=== PATIENT | female | born 1935 | race Caucasian/White ===

== ENCOUNTER 2016-11-28 18:58 | Inpatient (IN) | payer OTHER, MEDICARE ==
[~2016-11-28] VITALS: Ht 154.9 cm; Wt 98.6 kg
[2016-11-28 19:16] VITALS: BP 91/54; PULSE 73; RESP 16; TEMP 98.5; O2SAT 90
--- NOTE | 2016-11-28 20:36 | RADRPT ---
EXAM DATE/TIME: 11/28/2016 20:31 [facility] COMPARISON: No previous studies available for comparison. INDICATIONS : Shortness of breath. MEDICAL HISTORY : None. SURGICAL HISTORY : None. ENCOUNTER: Initial ACUITY: 1 day PAIN SCORE: 0/10 LOCATION: Bilateral chest FINDINGS: A single view of the chest demonstrates diminished lung volumes. Heart borderline enlarged. Prominenc e of the lina bilaterally greater on the left. Osseous structures are intact. CONCLUSION: 1. Poor inspiration with questionable hilar prominence bilaterally. PA lateral views of the chest are recommended. Carlito June MD on November 28, 2016 at 20:34 Board Certified Radiologist. This report was verified electronically.
--- NOTE | 2016-11-28 21:07 | PD ---
HPI Chief Complaint: Neuro Symptoms/ Deficits Time Seen by Provider: 20:42 Travel History International Travel<30 days: No Contact w/Intl Traveler<30days: No Traveled to known affect area: No History of Present Illness HPI 81-year-old female with history of CVA on Plavix, followed by neurologist Dr. Diego, right carotid endarterectomy [address] Mcleod, here for evaluation because she believes she may have had a CVA today. She describes generalized weakness, ataxic gait, slurred speech. Symptoms started earlier this morning. She also reports feeling lightheaded. No fevers. No focal deficits. No chest pain or dyspnea. She complains of diffuse body pain secondary to arthritis which is usual for her. PFSH Past Medical History Hx Anticoagulant Therapy: Yes (plavix) Cerebrovascular Accident: Yes (hx stroke and tia) Diabetes: Yes ?: Not Social History Tobacco Use: No (Former smoker) Allergies-Medications (Allergen,Severity, Reaction): Coded Allergies: No Known Allergies (Unverified , 11/28/16) Reported Meds & Prescriptions Reported Meds & Active Scripts Active Reported Glimepiride 1 Mg Tab 1 Mg PO DAILY Take with breakfast or first main meal Prozac (Fluoxetine HCl) 10 Mg Cap 10 Mg PO DAILY Lovastatin 40 Mg Tab 40 Mg PO DAILY Tizanidine (Tizanidine HCl) 4 Mg Cap 4 Mg PO BID Plavix (Clopidogrel Bisulfate) 75 Mg Tab 75 Mg PO DAILY Tramadol (Tramadol HCl) 50 Mg Tab 50 Mg PO Q6H PRN Gabapentin 100 Mg Cap 100 Mg PO BID Temazepam 30 Mg Cap 30 Mg PO HS PRN Abilify (Aripiprazole) 2 Mg Tab 2 Mg PO DAILY Ferrous Sulfate 325 Mg (65 Mg Iron) Tablet 325 Mg PO BIDPC Omeprazole 20 Mg Tab 20 Mg PO DAILY Review of Systems Except as stated in HPI: all other systems reviewed are Neg Physical Exam Narrative GENERAL: Well-developed, well-nourished, overweight, awake, alert, GCS 15, no apparent distress. SKIN: Focused skin assessment warm/dry. No rash. No pallor. HEAD: Atraumatic. Normocephalic. EYES: Pupils equal and round. No scleral icterus. No injection or drainage. ENT: Mucous membranes pink and moist. NECK: Trachea midline. No JVD. CARDIOVASCULAR: Regular rate and rhythm. Distal pulses brisk and equal bilaterally. RESPIRATORY: No accessory muscle use. Clear to auscultation. Breath sounds equal bilaterally. GASTROINTESTINAL: Abdomen soft, non-tender, nondistended. MUSCULOSKELETAL: No obvious deformities. No clubbing. No cyanosis. No edema. NEUROLOGICAL: Awake and alert. No obvious cranial nerve deficits. Motor grossly within normal limits. Normal speech. Normal uxydxx-qryv-rkspec test bilaterally. No pronator drift. No focal deficits. PSYCHIATRIC: Appropriate mood and affect; insight and judgment normal. Data Data Last Documented VS Vital Signs Date Time Temp Pulse Resp B/P (MAP) Pulse Ox O2 Delivery O2 Flow Rate FiO2 11/28/16 22:38 Room Air 11/28/16 22:38 18 95 11/28/16 22:38 72 125/57 (79) 11/28/16 19:[address] Brain W/O Iv Contrast(Rout) (11/28/16 ) Urinalysis - C+S If Indicated (11/28/16 20:19) Chest, Single Ap (11/28/16 ) Complete Blood Count With Diff (11/28/16 20:34) Comprehensive Metabolic Panel (11/28/16 20:34) Prothrombin Time / Inr (Pt) (11/28/16 20:34) Act Partial Throm Time (Ptt) (11/28/16 20:34) Iv Access Insert/Monitor (11/28/16 20:34) Ecg Monitoring (11/28/16 20:34) Oximetry (11/28/16 20:34) Cath For Specimen (11/28/16 20:45) Urine Culture (11/28/16 22:05) Ceftriaxone Inj (Rocephin Inj) (11/28/16 23:00) Admit Order (Ed Use Only) (11/28/16 23:34) Labs Laboratory Tests Test 11/28/16 22:05 White Blood Count 10.6 TH/MM3 Red Blood Count 3.95 MIL/MM3 Hemoglobin 10.0 GM/DL Hematocrit 32.2 % Mean Corpuscular Volume 81.4 FL Mean Corpuscular Hemoglobin 25.3 PG Mean Corpuscular Hemoglobin Concent 31.0 % Red Cell Distribution Width 19.6 % Platelet Count 394 TH/MM3 Mean Platelet Volume 7.1 FL Neutrophils (%) (Auto) 65.2 % Lymphocytes (%) (Auto) 16.1 % Monocytes (%) (Auto) 6.3 % Eosinophils (%) (Auto) 10.0 % Basophils (%) (Auto) 2.4 % Neutrophils # (Auto) 6.8 TH/MM3 Lymphocytes # (Auto) 1.7 TH/MM3 Monocytes # (Auto) 0.7 TH/MM3 Eosinophils # (Auto) 1.1 TH/MM3 Basophils # (Auto) 0.3 TH/MM3 CBC Comment DIFF FINAL Differential Comment Prothrombin Time 10.7 SEC Prothromb Time International Ratio 1.0 RATIO Activated Partial Thromboplast Time 25.1 SEC Urine Color YELLOW Urine Turbidity MOD Urine pH 6.0 Urine Specific [place] 1.012 Urine Protein NEG mg/dL Urine Glucose (UA) NEG mg/dL Urine Ketones NEG mg/dL Urine Occult Blood NEG Urine Nitrite POS Urine Bilirubin NEG Urine Leukocyte Esterase LARGE Urine RBC 4-9 /hpf Urine WBC 25-49 /hpf Urine WBC Clumps OCC Urine Squamous Epithelial Cells 0-5 /hpf Urine Bacteria MANY /hpf Urine Hyaline Casts 3-5 /lpf Urine Mucus MOD /lpf Microscopic Urinalysis Comment CULTURE INDICATED Blood Urea Nitrogen 15 MG/DL Creatinine 1.20 MG/DL Random Glucose 67 MG/DL Total Protein 7.5 GM/DL Albumin 2.9 GM/DL Calcium Level 8.9 MG/DL Alkaline Phosphatase 72 U/L Aspartate Amino Transf (AST/SGOT) 97 U/L Alanine Aminotransferase (ALT/SGPT) 100 U/L Total Bilirubin 0.3 MG/DL Sodium Level 137 MEQ/L Potassium Level 3.6 MEQ/L Chloride Level 103 MEQ/L Carbon Dioxide Level 26.0 MEQ/L Anion Gap 8 MEQ/L Estimat Glomerular Filtration Rate 43 ML/MIN [facility] Medical Decision Making Medical Screen Exam Complete: Yes Emergency Medical Condition: Yes Differential Diagnosis CVA, TIA, metabolic abnormality, intracranial abnormality, UTI Narrative Course Vital signs show heart rate 72, blood pressure 125/57, pulse ox 95% on room air , oral temp of 98.5F. CBC shows WBC 10.6, hemoglobin 10, hematocrit 32.2, platelets 394. CMP is remarkable for creatinine 1.2, GFR 43, random glucose 67, AST 67, ALT 100. UA is suggestive of UTI. CT head: CONCLUSION: 1. No acute intracranial abnormality. 2. Old right occipital and left temporal lobe infarcts. 3. Mild, chronic white matter changes. Chest x-ray: CONCLUSION: 1. Poor inspiration with questionable hilar prominence bilaterally. PA lateral views of the chest are recommended. Jovon Durand MD Nov 28, 2016 21:07
--- NOTE | 2016-11-28 21:25 | RADRPT ---
EXAM DATE/TIME: 11/28/2016 21:02 [facility] COMPARISON: No previous studies available for comparison. INDICATIONS : Altered mental status; possible CVA. RADIATION DOSE: 59.16 CTDIvol (mGy) MEDICAL HISTORY : Cerebrovascular disease. Diabetes mellitus type 2. SURGICAL HISTORY : None. ENCOUNTER: Initial ACUITY: 1 day PAIN SCALE: Non-responsive LOCATION: cranial TECHNIQUE: Multiple contiguous axial images were obtained of the head. Using automated exposure control and adj ustment of the mA and/or kV according to patient size, radiation dose was kept as low as reasonably a chievable to obtain optimal diagnostic quality images. DICOM format image data is available electro nically for review and comparison. FINDINGS: CEREBRUM: The ventricles are normal for age. No evidence of midline shift, mass lesion, hemorrhage or acute in farction. No extra-axial fluid collections are seen. Mild, chronic appearing low attenuation seen in the periventricular white matter. There are also old infarcts of the right occipital and left tempor al lobes.. POSTERIOR FOSSA: The cerebellum and brainstem are intact. The 4th ventricle is midline. The cerebellopontine angle i s unremarkable. EXTRACRANIAL: The visualized portion of the orbits is intact. SKULL: The calvaria is intact. No evidence of skull fracture. CONCLUSION: 1. No acute intracranial abnormality. 2. Old right occipital and left temporal lobe infarcts. 3. Mild, chronic white matter changes. Thierry Lyles MD on November 28, 2016 at 21:22 Board Certified Radiologist. This report was verified electronically.
[2016-11-28 22:18] LABS: AUTOMATED NEUTROPHIL # 6.8 TH/MM3 (1.8-7.7); BASOPHIL # 0.3 TH/MM3 (0-0.2); BASOPHIL % 2.4 % (0.0-2.0); EOSINOPHIL # 1.1 TH/MM3 (0-0.4); HEMATOCRIT 32.2 % (35.0-46.0); LYMPH % 16.1 % (9.0-44.0); LYMPHOCYTE # 1.7 TH/MM3 (1.0-4.8); MEAN CELL VOLUME 81.4 FL (80.0-100.0); MEAN CORPUSCULAR HEMOGLOBIN 25.3 PG (27.0-34.0); MONO % 6.3 % (0.0-8.0); NEUT % 65.2 % (16.0-70.0); PLATELET COUNT 394 TH/MM3 (150-450); RED BLOOD COUNT 3.95 MIL/MM3 (4.00-5.30); RED CELL DISTRIBUTION WIDTH 19.6 % (11.6-17.2); WHITE BLOOD COUNT 10.6 TH/MM3 (4.0-11.0)
[2016-11-28 22:20] LABS: BLOOD, URINE NEG (NEG); GLUCOSE,URINE NEG (NEG); KETONE, URINE NEG (NEG); NITRITE,URINE POS (NEG)
[2016-11-28 22:30] LABS: CHLORIDE 103 MEQ/L (98-107); POTASSIUM 3.6 MEQ/L (3.5-5.1); SODIUM (NA) 137 MEQ/L (136-145)
[2016-11-28 22:31] LABS: HEMO FLAGS DIFF FINAL
[2016-11-28 22:35] LABS: ANION GAP 8 MEQ/L (5-15); BLOOD UREA NITROGEN 15 MG/DL (7-18)
[2016-11-28 22:38] VITALS: BP 125/57; PULSE 72; RESP 18; O2SAT 95
[2016-11-28 22:38] LABS: ALT (GPT) 100 U/L (10-53); AST (GOT) 97 U/L (15-37); GLOMERULAR FILTRATION RATE 43 ML/MIN (>89)
[2016-11-28 22:40] LABS: TOTAL BILIRUBIN ADULT 0.3 MG/DL (0.2-1.0)
[2016-11-28 22:41] LABS: ALKALINE PHOSPHATASE 72 U/L (45-117)
[2016-11-28 22:48] LABS: APTT (PATIENT) 25.1 SEC (24.3-30.1); PROTHROMBIN TIME - PATIENT 10.7 SEC (9.8-11.6)
[2016-11-28 22:50] LABS: MUCUS URINE MOD /lpf (OCC); URINE COLOR YELLOW (YELLW/STRAW)
[2016-11-28 22:51] LABS: BACTERIA, URINE MANY /hpf; COMMENT (UR) CULTURE INDICATED; CULTURE IF INDICATED CULTURE INDICATED; SQUAMOUS EPITHELIAL CELL URINE 0-5 /hpf (0-5)
[2016-11-28] MEDS ORDERED: TIZA4CAP3 PO (22:56)
[2016-11-28] MEDS ORDERED: OMEP20TA PO (22:56)
[2016-11-28] MEDS ORDERED: GLIM1TAB PO (22:56)
[2016-11-28] MEDS ORDERED: TEMA30CA PO (22:56)
[2016-11-28] MEDS ORDERED: LOVA40TA PO (22:56)
[2016-11-28] MEDS ORDERED: PLAV75TA29 PO (22:56)
[2016-11-28] MEDS ORDERED: FLUO-1 PO (22:56)
[2016-11-28] MEDS ORDERED: TRAM50TA PO (22:56)
[2016-11-28] MEDS ORDERED: GABA100C4 PO (22:56)
[2016-11-28] MEDS ORDERED: ABIL2TAB2 PO (22:56)
[2016-11-28] MEDS ORDERED: FERR325T8 PO (22:56)
[2016-11-28] MEDS ORDERED: cefTRIAXone INJ 1,000 MG in SODIUM CHLORIDE 0.9% INJ 100 ML IV ONE (23:00)
[2016-11-28] MEDS ORDERED: DEXTROSE 50% IN WATER 50 ML VIAL(D50) IV PUSH PRN (23:45)
[2016-11-28] MEDS ORDERED: DEXTROSE 50% IN WATER 50 ML VIAL(D50) IV PRN (23:45)
[2016-11-28] MEDS ORDERED: GLUCAGON 1 MG/ML VIAL OTHER PRN ×2 (23:45)
[2016-11-28] MEDS ORDERED: SODIUM CHLORIDE 0.9% FLUSH 5 ML FLUSH IV FLUSH PRN (23:45)
[2016-11-29] VITALS (12 sets, daily range): BP systolic 119–163; BP diastolic 43–81; PULSE 75–95; RESP 16–20; TEMP 98.3–99; O2SAT 92–99
--- NOTE | 2016-11-29 00:25 | RADRPT ---
EXAM DATE/TIME: 11/28/2016 23:41 [facility] COMPARISON: CHEST SINGLE AP, November 28, 2016, 20:31. INDICATIONS : Shortness of breath. MEDICAL HISTORY : None. SURGICAL HISTORY : None. ENCOUNTER: Subsequent ACUITY: 1 day PAIN SCORE: 0/10 LOCATION: Bilateral chest FINDINGS: PA and lateral views of the chest demonstrate subsegmental opacity in the lungs there is predominantl y linear and most characteristic of atelectasis. Elevated right hemidiaphragm. No effusion. Heart siz e upper limits normal. CONCLUSION: 1. Subsegmental airspace disease in the lungs in the bases and perihilar regions most characteristic of atelectasis. Elevated right hemidiaphragm. No significant effusion. Jorge Alberto Zavaleta MD on November 29, 2016 at 0:21 Board Certified Radiologist. This report was verified electronically.
[2016-11-29] MEDS ORDERED: ACETAMINOPHEN 325 MG TAB PO ONE (01:30)
--- NOTE | 2016-11-29 08:54 | RADRPT ---
EXAM DATE/TIME: 11/29/2016 08:04 [facility] COMPARISON: No previous studies available for comparison. INDICATIONS : Transient ischemic attack. MEDICAL HISTORY : Cerebrovascular accident. Anticoagulant therapy, Plavix. Diabetes. SURGICAL HISTORY : Right carotid endarterectomy. Left femur surgery. Bilateral ankle surgery. Right knee surgery. ENCOUNTER: Initial ACUITY: 2 days PAIN SCORE: 0/10 LOCATION: Bilateral neck PEAK SYSTOLIC VELOCITIES (cm/sec): ICA/CCA RATIO: Right: 0.9 Left: 1.2 ICA: Right: 87 Left: 96 CCA: Right: 93 Left: 82 ECA: Right: 331 Left: 142 VERTEBRAL: Right: 61 antegrade Left: 43 antegrade Elevated flow velocities and ICA/CCA ratios have been found to correlate with increased degrees of vessel stenosis, calculated as percentage of diameter relative to a normal segment of distal ICA/CCA FINDINGS: RIGHT CAROTID: There is no evidence for a hemodynamically significant carotid stenosis. Minimal int imal hyperplasia is present with scattered calcific plaque. LEFT CAROTID: There is no evidence for a hemodynamically significant carotid stenosis. Minimal inti mal hyperplasia is present with scattered calcific plaque. VERTEBRAL ARTERIES: Flow is antegrade in both vertebral arteries. MISCELLANEOUS: There are no ancillary masses or adenopathy. CONCLUSION: Negative examination for a hemodynamically significant carotid stenosis. Kyree Felton MD FACR on November 29, 2016 at 8:44 Board Certified Radiologist. This report was verified electronically.
[2016-11-29] MEDS: SODIUM CHLORIDE 0.9% FLUSH 5 ML FLUSH IV FLUSH SCH ×2 (09:00→20:25)
[2016-11-29 09:29] LABS: HDL CHOLESTEROL 35.2 MG/DL (40.0-60.0); LDL CHOLESTEROL 53 MG/DL (0-99)
[2016-11-29 09:58] LABS: POTASSIUM 3.6 MEQ/L (3.5-5.1)
[2016-11-29 10:02] LABS: BICARBONATE 26.2 MEQ/L (21.0-32.0)
[2016-11-29] MEDS: cefTRIAXone INJ 1,000 MG in SODIUM CHLORIDE 0.9% INJ 100 ML IV SCH ×2 (10:40→20:21)
[2016-11-29 10:51] LABS: HEMOGLOBIN A1a 1.5 %; HEMOGLOBIN A1b 1.8 %; HEMOGLOBIN Ao 84.9 %; HEMOGLOBIN LA1C 1.9 %; HEMOGLOBIN P3 5.1 %
--- NOTE | 2016-11-29 11:52 | HHI.HP ---
HPI Service [facility] Primary Care Physician Thierry Irwin MD Admission Diagnosis UTI, unsteady gait r/o CVA Diagnoses: (1) Urinary tract infection Diagnosis: Principal (2) History of CVA (cerebrovascular accident) Diagnosis: Secondary (3) Slurred speech Diagnosis: Principal (4) Weakness Diagnosis: Principal Chief Complaint: Slurred speech, weakness, fatigue Travel History International Travel<30 Days: No Contact w/Intl Traveler <30 Da: No Traveled to Known Affected Are: No History of Present Illness Written by Cedric Tamayo, acting as scribe for Dr. Gonzalez on 11/29/16 at 11: 42. 81-year-old female with known history of CVA, recent urinary tract infection, chronic back pain, chronic obstructive pulmonary disease, arthritis, diabetes who presented to hospital for multiple symptoms. Patient indicates that she was just recently admitted to the hospital in [facility] and treated for urinary tract infection. Patient discharged home on amoxicillin she did not feel that the infection was going away. She was told that she needed to change her antibiotics to another medication, however it would interfere with her diabetic medication. Patient's symptoms Ressie got worse, she started developing weakness, fatigue, slurred speech. Patient thought that she was having a stroke again so she came to the hospital for evaluation. Patient's symptoms have thus resolved since being in the emergency department. CT scan did not indicate any acute abnormality. Workup did indicate urinary tract infection without any signs of sepsis. It was recommended that the patient be admitted for neurological evaluation. Patient denies any symptoms at this time. Review of Systems Constitutional: COMPLAINS OF: Fatigue Neurologic: COMPLAINS OF: Abnormal gait, Speech Problems Except as stated in HPI: all other systems reviewed are Neg Past Family Social History Past Medical History Diabetes Chronic back pain Chronic obstructive pulmonary disease History of stroke History of recent urinary tract infection Past Surgical History Right knee surgery Right ankle surgery Left ankle surgery Cholecystectomy Reported Medications Reported Meds & Active Scripts Active Reported Glimepiride 1 Mg Tab 1 Mg PO DAILY Take with breakfast or first main meal Prozac (Fluoxetine HCl) 10 Mg Cap 10 Mg PO DAILY Lovastatin 40 Mg Tab 40 Mg PO DAILY Tizanidine (Tizanidine HCl) 4 Mg Cap 4 Mg PO BID Plavix (Clopidogrel Bisulfate) 75 Mg Tab 75 Mg PO DAILY Tramadol (Tramadol HCl) 50 Mg Tab 50 Mg PO Q6H PRN Gabapentin 100 Mg Cap 100 Mg PO BID Temazepam 30 Mg Cap 30 Mg PO HS PRN Abilify (Aripiprazole) 2 Mg Tab 2 Mg PO DAILY Ferrous Sulfate 325 Mg (65 Mg Iron) Tablet 325 Mg PO BIDPC Omeprazole 20 Mg Tab 20 Mg PO DAILY Allergies: Coded Allergies: No Known Allergies (Unverified , 11/28/16) Family History Reviewed is significant for mother with heart disease and father with colon cancer. Social History Patient states that she quit smoking in the 80s, denies any current use, denies any alcohol or illicit drugs Physical Exam Vital Signs Vital Signs Date Time Temp Pulse Resp B/P (MAP) Pulse Ox O2 Delivery O2 Flow Rate FiO2 11/29/16 11:21 11/29/16 11:08 86 16 97 Nasal Cannula 11/29/16 11:03 87 16 133/57 (82) 88 16 143/65 (91) 100 16 119/51 (73) 11/29/16 07:15 87 16 96 Nasal Cannula 2.00 11/29/16 07:15 87 16 131/52 (78) 96 Nasal Cannula 2.00 11/29/16 07:00 16 11/29/16 06:00 98.6 86 18 149/58 (88) 96 Nasal Cannula 2.00 11/29/16 04:00 86 18 134/43 (73) 94 Nasal Cannula 2.00 11/29/16 03:00 90 18 160/57 (91) 94 Room Air 11/29/16 02:00 99.0 86 18 163/59 (93) 94 Room Air 11/29/16 01:00 82 18 161/81 (107) 95 Room Air 11/29/16 00:00 94 Room Air 11/29/16 00:00 98.8 75 18 161/69 (99) 94 Room Air 11/28/16 22:38 Room Air 11/28/16 22:38 18 95 Room Air 11/28/16 22:38 72 18 125/57 (79) 95 Room Air 11/28/16 19:16 98.5 73 16 91/54 (66) 90 Physical Exam GENERAL: Well-developed, well-nourished, in no acute distress. alert and orientated HEENT: Head is normocephalic without any lesions or masses noted. Facial features are symmetric. Eyes: Pupils equal round reactive to light. Extraocular muscles are intact. Conjunctivae were clear. Oropharyngeal: Pharynx without any erythema edema. Tongue is midline without deviation. Buccal mucosa is moist without any masses or lesions NECK: Supple without any masses. Trachea midline no deviation. No JVD, no bruits are appreciated CARDIAC: Regular rhythm, regular rate. S1/S2 are heard. No murmurs gallops or rubs. LUNGS: Clear to auscultation bilaterally. No wheeze, rhonchi or rales. No use of accessory muscles on inspiration or expiration. ABDOMEN: Soft, nontender. Nondistended. Bowel sounds heard in all 4 quadrants. No organomegaly or masses. Negative rebound, negative guarding EXTREMITIES: No edema, pulses are equal bilaterally. No cyanosis or clubbing NEUROLOGY: Mood and affect appear appropriate. Cranial nerves II through XII grossly intact. Muscle strength 5/5 in upper and lower extremities bilaterally. Deep tendon reflexes are 2+ in upper and lower extremities bilaterally. Laboratory Laboratory Tests Test 11/28/16 22:05 11/29/16 05:50 11/29/16 09:15 White Blood Count 10.6 Red Blood Count 3.95 Hemoglobin 10.0 Hematocrit 32.2 Mean Corpuscular Volume 81.4 Mean Corpuscular Hemoglobin 25.3 Mean Corpuscular Hemoglobin Concent 31.0 Red Cell Distribution Width 19.6 Platelet Count 394 Mean Platelet Volume 7.1 Neutrophils (%) (Auto) 65.2 Lymphocytes (%) (Auto) 16.1 Monocytes (%) (Auto) 6.3 Eosinophils (%) (Auto) 10.0 Basophils (%) (Auto) 2.4 Neutrophils # (Auto) 6.8 Lymphocytes # (Auto) 1.7 Monocytes # (Auto) 0.7 Eosinophils # (Auto) 1.1 Basophils # (Auto) 0.3 CBC Comment DIFF FINAL Differential Comment Prothrombin Time 10.7 Prothromb Time International Ratio 1.0 Activated Partial Thromboplast Time 25.1 Urine Color YELLOW Urine Turbidity MOD Urine pH 6.0 Urine Specific [place] 1.012 Urine Protein NEG Urine Glucose (UA) NEG Urine Ketones NEG Urine Occult Blood NEG Urine Nitrite POS Urine Bilirubin NEG Urine Leukocyte Esterase LARGE Urine RBC 4-9 Urine WBC 25-49 Urine WBC Clumps OCC Urine Squamous Epithelial Cells 0-5 Urine Bacteria MANY Urine Hyaline Casts 3-5 Urine Mucus MOD Microscopic Urinalysis Comment CULTURE INDICATED Blood Urea Nitrogen 15 11 Creatinine 1.20 0.93 Random Glucose 67 89 Total Protein 7.5 Albumin 2.9 Calcium Level 8.9 8.6 Alkaline Phosphatase 72 Aspartate Amino Transf (AST/SGOT) 97 Alanine Aminotransferase (ALT/SGPT) 100 Total Bilirubin 0.3 Sodium Level 137 141 Potassium Level 3.6 3.6 Chloride Level 103 105 Carbon Dioxide Level 26.0 26.2 Anion Gap 8 10 Estimat Glomerular Filtration Rate 43 58 Hemoglobin A1c 5.7 Triglycerides Level 122 Cholesterol Level 113 LDL Cholesterol 53 HDL Cholesterol 35.2 Cholesterol/HDL Ratio 3.21 Date/Time Source Procedure Growth Status 11/28/16 22:05 Urine Clean Catch Urine Culture Pending Received Result Diagram: 11/28/16 2205 11/29/16 0915 Imaging Last Impressions Carotid Artery Ultrasound 11/29/16 0000 Signed Impressions: Service Date/Time: Tuesday, November 29, 2016 08:04 - CONCLUSION: Negative examination for a hemodynamically significant carotid stenosis. Kyree Felton MD FACR Head CT 11/28/16 0000 Signed Impressions: Service Date/Time: Monday, November 28, 2016 21:02 - CONCLUSION: 1. No acute intracranial abnormality. 2. Old right occipital and left temporal lobe infarcts. 3. Mild, chronic white matter changes. Thierry Lyles MD Chest X-Ray 11/28/16 0000 Signed Impressions: Service Date/Time: Monday, November 28, 2016 23:41 - CONCLUSION: 1. Subsegmental airspace disease in the lungs in the bases and perihilar regions most characteristic of atelectasis. Elevated right hemidiaphragm. No significant effusion. Jorge Alberto Zavaleta MD Caprini VTE Risk Assessment Caprini VTE Risk Assessment: Mod/High Risk (score >= 2) Caprini Risk Assessment Model Point Value = 1 Point Value = 2 Point Value = 3 Point Value = 5 Age 41-60 Minor surgery BMI > 25 kg/m2 Swollen legs Varicose veins or History of unexplained or recurrent spontaneous Oral contraceptives or hormone replacement Sepsis (< 1 month) Serious lung disease, including pneumonia (< 1 month) Abnormal pulmonary function Acute myocardial infarction Congestive heart failure (< 1 month) History of inflammatory bowel disease Medical patient at bed rest Age 61-74 Arthroscopic surgery Major open surgery (> 45 min) Laparoscopic surgery (> 45 min) Malignancy Confined to bed (> 72 hours) Immobilizing plaster cast Central venous access Age >= 75 History of VTE Family history of VTE Factor V Leiden Prothrombin [id number] Lupus anticoagulant Anticardiolipin antibodies Elevated serum homocysteine Heparin-induced thrombocytopenia Other congenital or acquired thrombophilia Stroke (< 1 month) Elective arthroplasty Hip, pelvis, or leg fracture Acute spinal cord injury (< 1 month) Prophylaxis Regimen Total Risk Factor Score Risk Level Prophylaxis Regimen 0-1 Low Early ambulation 2 Moderate Order ONE of the following: *Sequential Compression Device (SCD) *Heparin 5000 units SQ BID 3-4 Higher Order ONE of the following medications: *Heparin 5000 units SQ TID *Enoxaparin/Lovenox 40 mg SQ daily (WT < 150 kg, CrCl > 30 mL/min) *Enoxaparin/Lovenox 30 mg SQ daily (WT < 150 kg, CrCl > 10-29 mL/min) *Enoxaparin/Lovenox 30 mg SQ BID (WT < 150 kg, CrCl > 30 mL/min) AND/OR *Sequential Compression Device (SCD) 5 or more Highest Order ONE of the following medications: *Heparin 5000 units SQ TID (Preferred with Epidurals) *Enoxaparin/Lovenox 40 mg SQ daily (WT < 150 kg, CrCl > 30 mL/min) *Enoxaparin/Lovenox 30 mg SQ daily (WT < 150 kg, CrCl > 10-29 mL/min) *Enoxaparin/Lovenox 30 mg SQ BID (WT < 150 kg, CrCl > 30 mL/min) AND *Sequential Compression Device (SCD) Assessment and Plan Assessment and Plan Fatigue, weakness, slurred speech, multiple neurological symptoms Could be secondary to underlying neurological event, urinary tract infection CT scan was performed which was unremarkable Neurology consulted, recommending full neurological workup in addition of aspirin Awaiting MRI, MRA, carotid ultrasound, echocardiogram, further laboratory studies Continue Plavix, add aspirin Urinary tract infection Patient started on Rocephin Continue monitor culture and adjust antibiotics accordingly Diabetes Accu-Cheks with sliding scale insulin Check hemoglobin A1c Chronic back pain Home medications continued DVT prevention Sequential compression devices This note was transcribed by scribe [Cedric Tamayo]. I, Dr. Gayle Gonzalez personally performed the history, physical exam, and medical decision making; and confirmed the accuracy of the information in the transcribed note. Authenticated by Dr. Gayle Gonzalez on 11/29/16 at 1150. Discussed Condition With Patient, neurologist Cedric Tamayo Nov 29, 2016 11:52 Gayle Gonzalez MD Nov 29, 2016 12:09
--- NOTE | 2016-11-29 12:07 | RADRPT ---
EXAM DATE/TIME: 11/29/2016 11:43 [facility] COMPARISON: No previous studies available for comparison. INDICATIONS : CVA. Slurred speech and ataxia. MEDICAL HISTORY : Cerebrovascular disease. Chronic obstructive pulmonary disease. Diabetes mellitus type 2. SURGICAL HISTORY : Total knee replacement, right. Carotid endarterectomy. Right ankle repair. Left femur teddy. ENCOUNTER: Subsequent ACUITY: 2 day PAIN SCORE: 0/10 LOCATION: head. TECHNIQUE: Multiplanar, multisequence MRI of the brain was performed without contrast. FINDINGS: The examination demonstrates abnormal T2 signal and encephalomalacia in the left temporal cortex. Thi s is seen in the occipital cortex on the right as well. I believe these areas represent old/subacute areas of cortical infarct. There is cortical atrophy. There is moderate microvascular ischemic demyelinative change. No mass les ion is identified. No significant extra-axial fluid collections are present. The ventricles are normal in size and configuration. The appearance of the posterior fossa is unremarkable. The visualized portion of sinus and orbit is intact. CONCLUSION: 1. Abnormal T2 signal and encephalomalacia involving the left temporal lobe and medial aspect of the right occipital cortex. These have appearance most consistent with old or subacute areas of infarct. No significant abnormal signal is seen on the diffusion restricted images. 2. Cortical atrophy and microvascular ischemic demyelinative change. Ketan Felton MD on November 29, 2016 at 12:02 Board Certified Radiologist. This report was verified electronically.
--- NOTE | 2016-11-29 12:10 | RADRPT ---
EXAM DATE/TIME: 11/29/2016 11:43 [facility] COMPARISON: MRI BRAIN W/O CONTRAST, November 29, 2016, 11:43. INDICATIONS : CVA. Slurred speech and ataxia. MEDICAL HISTORY : Cerebrovascular disease. Chronic obstructive pulmonary disease. Diabetes mellitus type 2. SURGICAL HISTORY : Total knee replacement, right. Carotid endarterectomy. Right ankle repair. Left femur teddy. ENCOUNTER: Subsequent ACUITY: 2 day PAIN SCORE: 0/10 LOCATION: head . Please note a normal MRA of the brain does not entirely exclude the possibility of a small aneurysm, nor the possibility of distal intracranial vessel disease. TECHNIQUE: 3D time of flight MRA was performed. Source images, multiplanar STS MIP, and 3D volume MIP reconstru ctions were reviewed. FINDINGS: There is some pruning of the distal M3 branches of the left MCA. This is in the region of an area of old infarct seen on the accompanying MRI data. The remainder of the intracranial circulation is withi n normal limits. The right vertebral is diminutive in size. CONCLUSION: There is some pruning of the cortical branches of the distal left MCA distribution. This is in the re gion of an old area of infarct. No central vessel occlusion identified. Ketan Felton MD on November 29, 2016 at 12:06 Board Certified Radiologist. This report was verified electronically.
[2016-11-29] MEDS: traMADol HCL 50 MG TAB PO PRN ×2 (12:35→20:21)
[2016-11-29] MEDS: ASPIRIN EC 81 MG TABEC PO SCH (12:46)
--- NOTE | 2016-11-29 17:10 | ECHRPT ---
Indication: CVA/TIA CONCLUSIONS Normal left ventricular size. Wall thickness is normal. The left ventricular systolic function is normal with an estimated ejection fraction in the range of 60-65%. No wall motion abnormalities. Trace mitral valve regurgitation. Trace aortic valve regurgitation. There is trace tricuspid valve regurgitation. Normal estimated pulmonary pressures. BP: 131 / 57 HR: 87 Rhythm: Sinus MEASUREMENTS (Male / Female) Normal Values Technical Quality:Fair 2D ECHO LV Diastolic Diameter PLAX 5.0 cm 4.2 - 5.9 / 3.9 - 5.3 cm LV Systolic Diameter PLAX 3.9 cm IVS Diastolic Thickness 1.3 cm 0.6 - 1.0 / 0.6 - 0.9 cm LVPW Diastolic Thickness 1.3 cm 0.6 - 1.0 / 0.6 - 0.9 cm LV Relative Wall Thickness 0.5 LVOT Diameter 1.8 cm Aortic Root Diameter 2.5 cm LA Systolic Diameter LX 3.5 cm 3.0 - 4.0 / 2.7 - 3.8 cm M-MODE AV Cusp Separation MM 1.6 cm DOPPLER AV Peak Velocity 186.0 cm/s AV Peak Gradient 13.8 mmHg AV Mean Gradient 7.0 mmHg AV Velocity Time Integral 31.9 cm LVOT Peak Velocity 95.5 cm/s LVOT Peak Gradient 3.6 mmHg LVOT Velocity Time Integral 18.1 cm LVOT Cardiac Index 1872.6 cm/minm AV Area Cont Eq vti 1.4 cm AV Area Cont Eq pk 1.3 cm Mitral E Point Velocity 66.6 cm/s Mitral A Point Velocity 99.2 cm/s Mitral E to A Ratio 0.7 LV E' Lateral Velocity 13.0 cm/s Mitral E to LV E' Lateral Ratio 5.1 LV E' Septal Velocity 4.6 cm/s Mitral E to LV E' Septal Ratio 14.5 TR Peak Velocity 267.0 cm/s TR Peak Gradient 28.5 mmHg PV Peak Velocity 97.8 cm/s PV Peak Gradient 3.8 mmHg FINDINGS LEFT VENTRICLE Normal left ventricular size. Wall thickness is normal. The left ventricular systolic function is normal with an estimated ejection fraction in the range of 60-65%. No wall motion abnormalities. RIGHT VENTRICLE Normal right ventricular size and systolic function. LEFT ATRIUM The left atrial size is normal. RIGHT ATRIUM The right atrial size is normal. ATRIAL SEPTUM The interatrial septum not well visualized. AORTA The aortic root and proximal ascending aorta are normal in size on limited imaging. MITRAL VALVE Trace mitral valve regurgitation. AORTIC VALVE Trace aortic valve regurgitation. TRICUSPID VALVE Structurally normal tricuspid valve. There is trace tricuspid valve regurgitation. Normal estimated pulmonary pressures. PULMONARY VALVE The pulmonary valve is not well visualized. VESSELS The inferior vena cava was not well visualized. PERICARDIUM A prominent epicardial fat pad is present. Tato Mota MD (Electronically Signed) Final Date:29 November 2016 17:09
[2016-11-29] MEDS: FERROUS SULFATE 325 MG (65 MG ELEMENTAL IRON) TAB PO SCH (17:37)
[2016-11-29] MEDS: TEMAZEPAM 15 MG CAP PO PRN (22:32)
[2016-11-30] VITALS (10 sets, daily range): BP systolic 121–159; BP diastolic 54–87; PULSE 67–99; RESP 14–22; TEMP 97.5–99.7; O2SAT 90–97
[2016-11-30] MEDS: traMADol HCL 50 MG TAB PO PRN (03:16)
--- NOTE | 2016-11-30 07:43 | RADRPT ---
EXAM DATE/TIME: 11/30/2016 06:53 [facility] COMPARISON: No previous studies available for comparison. INDICATIONS : Fall, right wrist pain. MEDICAL HISTORY : None. SURGICAL HISTORY : None. ENCOUNTER: Initial ACUITY: 1 day PAIN SCORE: 10/10 LOCATION: Right wrist FINDINGS: A severe comminuted fracture dislocation of the right wrist is noted. There is dorsal displacement of the distal radius and radiocarpal joint in relation to the radial and ulnar shafts. The comminuted f racture involves the articulate surface of the radius. Fracture distal ulnar is noted. Carpal alignment is difficult to assess due to severe deformity. CONCLUSION: Severe comminuted fracture dislocation of the right distal radius and ulna extending into the radioca rpal joint. Carpal alignment difficult to assess due to severe deformity. Nehemiah Aquino MD on November 30, 2016 at 7:34 Board Certified Radiologist. This report was verified electronically.
[2016-11-30] MEDS: cefTRIAXone INJ 1,000 MG in SODIUM CHLORIDE 0.9% INJ 100 ML IV SCH (08:25)
[2016-11-30] MEDS: ARIPiprazole 2 MG TAB PO SCH (08:27)
[2016-11-30] MEDS: CLOPIDOGREL 75 MG TAB PO SCH (08:28)
[2016-11-30] MEDS: FERROUS SULFATE 325 MG (65 MG ELEMENTAL IRON) TAB PO SCH ×2 (08:28→17:17)
[2016-11-30] MEDS: ASPIRIN EC 81 MG TABEC PO SCH (08:28)
[2016-11-30] MEDS: FLUoxetine HCL 10 MG CAP PO SCH (08:31)
[2016-11-30] MEDS: SODIUM CHLORIDE 0.9% FLUSH 5 ML FLUSH IV FLUSH SCH ×2 (08:32→19:55)
[2016-11-30] MEDS: MORPHINE SULFATE 4 MG/ML INJ IV PRN ×3 (08:32→23:56)
[2016-11-30] MEDS ORDERED: PRAVASTATIN SOD 40 MG TAB PO SCH (09:00)
[2016-11-30] MEDS ORDERED: PANTOPRAZOLE SOD 20 MG DELAYED RELEASE TAB PO SCH (09:00)
[2016-11-30] MEDS ORDERED: MORPHINE SULFATE 8 MG/ML INJ IV PUSH ONE (09:45)
[2016-11-30] MEDS ORDERED: INFLUENZA VIRUS VACCINE (QUADRIVALENT) 0.5 ML SYR IM ONE (10:00)
--- NOTE | 2016-11-30 10:49 | RADRPT ---
EXAM DATE/TIME: 11/30/2016 10:03 [facility] COMPARISON: WRIST RIGHT LIMITED(AP & LAT), November 30, 2016, 6:53. INDICATIONS : Right wrist fracture. RADIATION DOSE: 14.50 CTDIvol (mGy) MEDICAL HISTORY : Cerebrovascular disease. Chronic obstructive pulmonary disease. Diabetes mellitus type 2. SURGICAL HISTORY : Left femur, left and right ankle ORIF. Right total knee. ENCOUNTER: Initial ACUITY: 1 day PAIN SCALE: 10/10 LOCATION: Right wrist TECHNIQUE: Volumetric scanning of the wrist was performed. Using automated exposure control and adjustment of t he mA and/or kV according to patient size, radiation dose was kept as low as reasonably achievable to obtain optimal diagnostic quality images. DICOM format image data is available electronically for review and comparison. FINDINGS: BONES: There is a markedly comminuted fracture involving both the distal radius and the ulna. The multiple r adial fragments are dorsal to the radial metaphysis. There is a small triangular fragment associated with the distal radial metaphysis measuring 1.3 cm across. The distal fragments of the radius are aga in dorsally displaced and markedly comminuted with a large articular surface fragment rotated into th e comminuted fractures fragments. The radial scaphoid articulation is still fairly preserved however the radial lunate articulation is comminuted and impacted. There is also some ulnar angulation to th e radial metaphysis and multiple epiphyseal fragments. The distal ulna is comminuted fractured with also slight dorsal displacement of the fracture fra gments. JOINTS: No focal bone erosion. Intrinsic ligaments and triangular fibrocartilage cannot be reliably evaluate d on CT without intra-articular contrast SOFT TISSUES: Muscles, tendons, and neurovascular structures are grossly unremarkable. No evidence of mass, organi zed fluid collection or foreign body. CONCLUSION: Common fractures of the distal radius and ulna as described above. The radial articulating surface is markedly comminuted with a portion of the radius scaphoid articulation remaining . There is signifi cant angulation of the radial fracture and displacement of fragments posteriorly with ulnar angulatio n. Vikas Aguilar MD on November 30, 2016 at 10:42 Board Certified Radiologist. This report was verified electronically.
[2016-11-30] MEDS ORDERED: VANCOMYCIN INJ 1,000 MG in SODIUM CHLOR 0.9% 250 ML INJ 250 ML IV ONE (11:15)
[2016-11-30] MEDS ORDERED: KETOROLAC TROMETHAMINE 30 MG/ML (IVP) VIAL IV PUSH ONE (11:15)
[2016-11-30] MEDS ORDERED: Vancomycin Consult Pharmacy 1 EA OTHER SCH (11:15)
--- NOTE | 2016-11-30 11:22 | MB ---
cc: DOM LEBLANC M.D. DATE OF CONSULTATION: 11/29/2016 HISTORY OF PRESENT ILLNESS She is a 89-kpykk-ver woman with stroke in the right occipital and left temporoparietal head region. She had a right carotid endarterectomy three months ago. She has been on Plavix and occasionally she takes a baby aspirin. Yesterday, she came to the emergency room of this hospital, [place], and she was describing recent urinary traction infection which was somewhat difficult to be treated, chronic back pain. She has multiple medical problems including diabetes, COPD with and she ambulates with a cane and a motorized wheelchair. She developed some vague symptoms yesterday and thought she needed to come to the hospital because of possible stroke. She had some fatigue, weakness and slurred speech but she has Vital signs: He is weakness, slurred speech but she is really unable to describe any symptoms to me. She thought she was having more on the urinary tract infection which caused her to be quite sleepy, encephalopathic and weak. MEDICATIONS Her list of medications includes: 1. Prozac. 2. Tizanidine. 3. Plavix. 4. Gabapentin. 5. Tramadol. 6. Temazepam. 7. Abilify. 8. Omeprazole. 9. Glimepiride. 10. Occasional aspirin as discussed above. NEUROLOGICAL EXAMINATION Exam shows the patient to be alert, pleasant, oriented, provides some basic history, well aware of recent medical problems including recent carotid endarterectomy. She has generalized weakness and moving all four extremities on the bedside exam without any major lateralizing features. Visual gordon are grossly intact. Reflexes were difficult to elicit at the knees and ankles due to prior procedures, bilateral frontal extensor responses. LABORATORY DATA WBC 10.6, hemoglobin 10.0, platelet count 319. Basic chemistry essentially normal. LDL is 53. Urinalysis with 25-49 RBCs. ASSESSMENT History of multiple strokes and a recent urinary tract infection which appears to persist and I suspect a lot of her current symptoms are probably from persistent UTI rather than a new cerebrovascular event. She does have an MRI of brain compatible with history of left parietotemporal old stroke and also right medial occipital old event. Would continue with statin, plavix and baby aspirin daily. Stroke rehab for out of bed activity. Continue the medical management for UTI etc. Thank you for asking us to assist in her care. MD YASMIN Abraham/JOSÉ /12:07 PM /11:01 AM [facility]
--- NOTE | 2016-11-30 11:29 | HHI.PR ---
Subjective Remarks Patient seen and evaluated today in follow-up for stroke symptoms which have resolved per patient. Patient admits that she was "a bad girl "and got out of bed last night to go to the bathroom on the bedside commode. She had some fecal incontinence which is not unusual for her. She did try to change her panties and fell. She did sustain a significant open fracture of her right wrist. Patient has been seen by orthopedic tach and splinted. Her pain is 8 out of 10 not improved with morphine IV. Patient has been recommended for surgical treatment and IV antibiotics. This was explained at length to the patient and the daughter at the bedside. Objective Vitals Vital Signs Date Time Temp Pulse Resp B/P (MAP) Pulse Ox O2 Delivery O2 Flow Rate FiO2 11/30/16 10:29 14 11/30/16 08:49 16 11/30/16 06:18 98.6 99 16 151/67 (95) 92 11/30/16 04:47 98.7 98 22 157/70 (99) 93 11/30/16 00:30 99.7 96 14 149/67 (94) 90 11/29/16 20:42 99.0 95 18 140/58 (85) 93 11/29/16 20:00 92 11/29/16 16:00 98.8 91 20 139/71 (93) 92 11/29/16 14:33 98.3 88 18 145/73 (97) 99 11/29/16 11:21 I/O 11/29/16 11/29/16 11/29/16 11/30/16 11/30/16 11/30/16 07:00 15:00 23:00 07:00 15:00 23:00 Intake Total 100 ml 100 ml 100 ml Balance 100 ml 100 ml 100 ml Intake IV Total 100 ml 100 ml 100 ml # Voids 3 3 3 Result Diagram: 11/28/16 2205 11/29/16 0915 Imaging Last Impressions Wrist X-Ray 11/30/16 0000 Signed Impressions: Service Date/Time: Wednesday, November 30, 2016 06:53 - CONCLUSION: Severe comminuted fracture dislocation of the right distal radius and ulna extending into the radiocarpal joint. Carpal alignment difficult to assess due to severe deformity. Nehemiah Aquino MD Upper Extremity CT 11/30/16 0000 Signed Impressions: Service Date/Time: Wednesday, November 30, 2016 10:03 - CONCLUSION: Common fractures of the distal radius and ulna as described above. The radial articulating surface is markedly comminuted with a portion of the radius scaphoid articulation remaining . There is significant angulation of the radial fracture and displacement of fragments posteriorly with ulnar angulation. Vikas Aguilar MD Head Magnetic Resonance Angiography 11/29/16 0000 Signed Impressions: Service Date/Time: Tuesday, November 29, 2016 11:43 - CONCLUSION: There is some pruning of the cortical branches of the distal left MCA distribution. This is in the region of an old area of infarct. No central vessel occlusion identified. Ketan Felton MD Carotid Artery Ultrasound 11/29/16 0000 Signed Impressions: Service Date/Time: Tuesday, November 29, 2016 08:04 - CONCLUSION: Negative examination for a hemodynamically significant carotid stenosis. Kyree Felton MD FACR Brain MRI 11/29/16 0000 Signed Impressions: Service Date/Time: Tuesday, November 29, 2016 11:43 - CONCLUSION: 1. Abnormal T2 signal and encephalomalacia involving the left temporal lobe and medial aspect of the right occipital cortex. These have appearance most consistent with old or subacute areas of infarct. No significant abnormal signal is seen on the diffusion restricted images. 2. Cortical atrophy and microvascular ischemic demyelinative change. Ketan Felton MD Head CT 11/28/16 0000 Signed Impressions: Service Date/Time: Monday, November 28, 2016 21:02 - CONCLUSION: 1. No acute intracranial abnormality. 2. Old right occipital and left temporal lobe infarcts. 3. Mild, chronic white matter changes. Thierry Lyles MD Chest X-Ray 11/28/16 0000 Signed Impressions: Service Date/Time: Monday, November 28, 2016 23:41 - CONCLUSION: 1. Subsegmental airspace disease in the lungs in the bases and perihilar regions most characteristic of atelectasis. Elevated right hemidiaphragm. No significant effusion. Jorge Albetro Zavaleta MD Objective Remarks Slurred speech improved GENERAL: This is a well-nourished, well-developed patient, in no apparent distress. CARDIOVASCULAR: Regular rate and rhythm without murmurs, gallops, or rubs. RESPIRATORY: Clear to auscultation. Breath sounds equal bilaterally. No wheezes , rales, or rhonchi. GASTROINTESTINAL: Abdomen soft, non-tender, nondistended. Normal active bowel sounds MUSCULOSKELETAL: Right extremity splinted, other 3 Extremities without clubbing , cyanosis, or edema. NEURO: Alert & Oriented x4 to person, place, time, situation. Moves all ext x4 A/P Problem List: (1) Urinary tract infection ICD Code: N39.0 - Urinary tract infection, site not specified Plan: Negative teddy in urine, continue cefepime (adjusted for coverage of open fracture) Follow-up cultures (2) History of CVA (cerebrovascular accident) ICD Code: Z86.73 - Personal history of transient ischemic attack (TIA), and cerebral infarction without residual deficits Plan: With evidence of subacute infarct. Symptoms of slurred speech have resolved. Continue with PT and OT Neurology consult pending ptn on plavix, aspirin Patient is also on Pravachol which will be changed to atorvastatin (3) Weakness ICD Code: R53.1 - Weakness Plan: Patient has chronic degenerative joint disease and takes tramadol at home. Continue with PT and OT eval (4) Fall ICD Code: W19.XXXA - Unspecified fall, initial encounter Plan: Patient admits that she did not ask for assistance, the patient says that she slipped on some of her urine and loose stools (chronic incontinence) Patient now has a right upper extremity commuted fracture with open area of skin Patient will need IV antibiotics, vancomycin and cefepime (discussed with Dr. Rodriguez, ID) Continue with all orthopedic plans for surgical treatment Continue pain control, IV morphine for pain and Toradol Discharge Planning transfer to [facility] for ortho surg Physician Certification 2 Midnight Certification Type: Admission for Inpatient Services Order for Inpatient Services The services are ordered in accordance with Medicare regulations or non- Medicare payer requirements, as applicable. In the case of services not specified as inpatient-only, they are appropriately provided as inpatient services in accordance with the 2-midnight benchmark. Estimated LOS (days): 4 4 days is the estimated time the patient will need to remain in the hospital, assuming treatment plan goals are met and no additional complications. Post-Hospital Plan: Not yet determined Alicia Smith MD Nov 30, 2016 11:29
[2016-11-30] MEDS ORDERED: PANTOPRAZOLE SOD 20 MG DELAYED RELEASE TAB PO ONE (11:45)
[2016-11-30] MEDS ORDERED: PIPERACIL-TAZO 3.375 GM PREMIX 50 ML IV SCH ×2 (12:00→14:00)
[2016-11-30] MEDS: PIPERACILLIN/TAZ 3.375 GM VIAL 3.375 GM in SODIUM CHLORIDE 0.9% INJ 100 ML IV SCH ×2 (12:26→19:55)
[2016-11-30] MEDS: VANCOMYCIN INJ 1,500 MG in SODIUM CHLORID 0.9% 500 ML INJ 500 ML IV SCH (12:27)
[2016-11-30 13:43] LABS: AUTOMATED NEUTROPHIL # 7.1 TH/MM3 (1.8-7.7); BASOPHIL # 0.1 TH/MM3 (0-0.2); BASOPHIL % 0.5 % (0.0-2.0); EOSINOPHIL # 0.3 TH/MM3 (0-0.4); EOSINOPHIL % 3.1 % (0.0-4.0); HEMATOCRIT 31.9 % (35.0-46.0); HEMO FLAGS DIFF FINAL; LYMPH % 17.5 % (9.0-44.0); LYMPHOCYTE # 1.8 TH/MM3 (1.0-4.8); MEAN CELL VOLUME 79.2 FL (80.0-100.0); MEAN CORPUSCULAR HEMOGLOBIN 25.7 PG (27.0-34.0); MEAN CORPUSCULAR HGB CONC 32.5 % (32.0-36.0); NEUT % 69.9 % (16.0-70.0); PLATELET COUNT 362 TH/MM3 (150-450); RED BLOOD COUNT 4.03 MIL/MM3 (4.00-5.30); RED CELL DISTRIBUTION WIDTH 19.6 % (11.6-17.2); WHITE BLOOD COUNT 10.2 TH/MM3 (4.0-11.0)
[2016-11-30] MEDS ORDERED: KETOROLAC TROMETHAMINE 60 MG/2 ML (IM) VIAL IM PRN (18:00)
[2016-11-30] MEDS ORDERED: POVIDONE IODINE 5% (ANTISEPSIS KIT) 4 APPLICATIONS EACH NARE PRN (23:15)
[2016-11-30] MEDS ORDERED: CHLORHEXIDINE GLUCONATE 2 % 1 PACK (2 CLOTHS) TOPICAL PRN (23:15)
[2016-11-30] MEDS ORDERED: METOPROLOL TARTRATE 25 MG TAB PO PRN (23:15)
[2016-11-30] MEDS ORDERED: INSULIN HUMAN REGULAR 1,000 UNITS/10 ML VIAL SQ PRN (23:15)
[2016-11-30] MEDS ORDERED: SODIUM CHLORID 0.9% 500 ML IV PRN (23:15)
[2016-11-30] MEDS ORDERED: LACTATED RINGER'S 1000 ML IV PRN (23:15)
[2016-12-01] VITALS: BP 144/66; PULSE 97; RESP 19; TEMP 96; O2SAT 94
[2016-12-01] MEDS: PIPERACILLIN/TAZ 3.375 GM VIAL 3.375 GM in SODIUM CHLORIDE 0.9% INJ 100 ML IV SCH ×4 (02:17→20:57)
[2016-12-01] MEDS: traMADol HCL 50 MG TAB PO PRN (02:17)
[2016-12-01 04:00] VITALS: BP 144/59; PULSE 94; RESP 16; TEMP 98.9; O2SAT 94
[2016-12-01] MEDS: MORPHINE SULFATE 4 MG/ML INJ IV PRN (04:00)
[2016-12-01] MEDS ORDERED: MORPHINE SULFATE 4 MG/ML INJ IV PUSH ONE (05:45)
--- NOTE | 2016-12-01 06:51 | PD.ORT.PN ---
Subjective Subjective Remarks Admitted to [facility] due to stroke symptoms and left sided weakness. fell while in hospital right wrist pain. Objective Vitals Vital Signs Date Time Temp Pulse Resp B/P (MAP) Pulse Ox O2 Delivery O2 Flow Rate FiO2 12/01/16 04:00 98.9 94 16 144/59 (87) 94 12/01/16 00:00 96.0 97 19 144/66 (92) 94 11/30/16 20:00 98.5 94 18 135/63 (87) 95 11/30/16 20:00 95 11/30/16 19:10 20 11/30/16 18:27 98.3 82 14 121/54 (76) 96 11/30/16 17:15 93 Nasal Cannula 2.00 11/30/16 16:57 96 11/30/16 14:40 98.0 94 15 159/80 (106) 97 11/30/16 14:15 89 11/30/16 13:52 16 11/30/16 10:29 14 11/30/16 08:00 99.2 95 20 151/87 (108) 95 I/O 11/30/16 11/30/16 11/30/16 12/01/16 12/01/16 12/01/16 07:00 15:00 23:00 07:00 15:00 23:00 Intake Total 200 ml 841 ml Output Total 240 ml Balance 200 ml 601 ml Intake Oral 480 ml IV Total 200 ml 361 ml Output Urine Total 240 ml # Voids 3 Result Diagram: 11/30/16 1308 11/29/16 0915 Objective Remarks RUE: +sugar tong splint. intact. nvi Assessment & Plan Assessment and Plan 1) Right Distal Radius Fx -npo -consents -surgery today Polo Caro Dec 01, 2016 06:51
[2016-12-01 08:00] VITALS: BP 146/63; PULSE 98; RESP 19; TEMP 99.3; O2SAT 92
[2016-12-01] MEDS: ASPIRIN EC 81 MG TABEC PO SCH (08:30)
[2016-12-01] MEDS: SODIUM CHLORIDE 0.9% FLUSH 5 ML FLUSH IV FLUSH SCH ×2 (08:30→20:57)
[2016-12-01] MEDS: ARIPiprazole 2 MG TAB PO SCH (08:30)
[2016-12-01 08:51] LABS: BICARBONATE 26.3 MEQ/L (21.0-32.0); POTASSIUM 3.7 MEQ/L (3.5-5.1)
[2016-12-01] MEDS ORDERED: VITA2000 PO (08:53)
[2016-12-01] MEDS ORDERED: ERGO1CAP30 PO (08:53)
[2016-12-01] MEDS ORDERED: CALCTAB19 PO (08:53)
[2016-12-01] MEDS ORDERED: HYDR-3580 PO (08:53)
[2016-12-01] MEDS ORDERED: FAMOTIDINE 20 MG/2 ML VIAL ONE (08:57)
[2016-12-01] MEDS: FERROUS SULFATE 325 MG (65 MG ELEMENTAL IRON) TAB PO SCH ×2 (09:00→18:33)
[2016-12-01] MEDS: FLUoxetine HCL 10 MG CAP PO SCH (09:00)
[2016-12-01] MEDS: ATORVASTATIN 40 MG TAB PO SCH (09:00)
[2016-12-01] MEDS: CLOPIDOGREL 75 MG TAB PO SCH (09:00)
[2016-12-01] MEDS ORDERED: RESP: ALBUTEROL 2.5 MG/IPRATROPIUM 0.5 MG NEB (SCH) ONE (09:07)
[2016-12-01] MEDS ORDERED: ceFAZolin INJ 1,000 MG VIAL ONE (09:14)
[2016-12-01] MEDS ORDERED: GENTAMICIN SULFATE 80 MG/2 ML VIAL ONE (09:14)
[2016-12-01] MEDS ORDERED: VANCOMYCIN HCL 1000 MG VIAL ONE (09:14)
[2016-12-01] MEDS ORDERED: ceFAZolin 2 GM PREMIX 50 ML IV SCH (11:30)
[2016-12-01] MEDS ORDERED: GENTAMICIN 80 MG PREMIX 100 ML IV SCH (11:30)
--- NOTE | 2016-12-01 11:38 | PD.OP ---
cc: Petey Sharif MD Operative Report Date of Surgery: Dec 01, 2016 Preoperative Diagnosis: Severely comminuted open right distal radius and ulna fractures Postoperative Diagnosis: Procedure: External fixation right distal radius fracture, open reduction internal fixation right distal radius fracture, irrigation debridement of open distal radius fracture Anesthesia: Gen. Surgeon: Petey Sharif Special Education Assistant(s): MANOLO Aggarwal PA-C The surgical procedure was assisted by my physician assistant food service manager. My P.A. presence was necessary throughout this case for the manipulation and positioning of the surgical extremity. My P.A. was assisting me throughout the duration of this procedure. The skill set of a physician assistant food service manager was medically necessary to complete this procedure. During the surgical case the surgical services director was working at the back table and the physician assistant food service manager was directly assisting me. Operation and Findings: Patient was seen and evaluated preoperatively and found to have a severely comminuted open displaced distal radius and ulna fracture. Informed consent was obtained after detailed discussion of risk and benefits including bleeding, infection, injury to arteries, nerves, and blood vessels, weakness and numbness of hand, and tendon rupture. Informed consent was obtained. Patient received IV antibiotics prior to incision. Timeout procedure was performed. Operative extremity was prepped with alcohol followed by Hibiclens and draped usual sterile fashion. A standard volar approach to the distal radius was utilized. A 3 inch incision was made over the FCR tendon. Tendon sheath was opened. Pronator quadratus was elevated up. The fracture site was now visualized. The fracture did have intra-articular extension with significant comminution and displacement. At this point attention was turned to debridement of fracture. Skin subcutaneous tissue fascia and bone were sharply debrided with curettes and rongeur. Overall the wound was relatively clean. There is no visible gross contamination. The wound was now thoroughly irrigated with sterile saline. Next attention was turned to external fixation of the wrist. Because of the severe comminution of the distal radius and external fixator was placed. 2 pin sites were placed second metacarpal and 2 pins were placed in the radial shaft. Soft tissue was protected to avoid injury to neurovascular structures. Pin sites are predrilled. An external fixator construct was now created. Traction was applied. The fracture was grossly reduced. The external fixator was tightened to hold reduction. Next attention was turned to open reduction internal fixation. The articular surface was reduced. Fracture fragments were manipulated to achieve appropriate reduction. There was significant displacement and depression of the articular surface. K wires were used to hold provisional fixation. Fluoroscopy confirmed appropriate alignment of fracture. A Synthes 2 column variable angle distal radius plate was selected. Plate was provisionally fixed to bone with K wires. 2.7 and 2.4 cortical screws were used to compress plate to bone. Fluoroscopy confirmed appropriate alignment of fracture with well- placed hardware. Multiple 2.4 locking screws were now placed distally. Screws were predrilled and measured for appropriate length. 2 additional screws were placed into the shaft. K wires were removed. Final fluoroscopy revealed excellent of fracture with well-placed hardware. The wound was thoroughly irrigated with sterile saline. Subcutaneous tissue was closed with 3-0 Vicryl and skin was closed with 3-0 nylon. Sterile dressings were applied. Patient was awakened and transferred to recovery room in stable condition Petey Sharif MD Dec 01, 2016 11:38
[2016-12-01] MEDS ORDERED: DO NOT ADM ANY ANTICOAGULANT DRUGS PRN (12:15)
[2016-12-01] MEDS ORDERED: *RESP: ALBUTEROL 2.5 MG/3 ML NEB (PRN) PERIprocedural Use ONLY NEB ONE (12:16)
[2016-12-01] MEDS ORDERED: ACETAMINOPHEN 1000 MG/100 ML 100 ML IV ONE (12:21)
--- NOTE | 2016-12-01 12:53 | MB ---
cc: [facility] DATE OF CONSULTATION 12/01/2016 DATE OF ADMISSION 11/28/2016 REASON FOR CONSULTATION Comminuted right distal radius and ulna fractures. CONSULTING PHYSICIAN Dr. Alicia Smith HISTORY Donna is a 81-year-old female who had a recent CVA. She was admitted to [facility]. She had developed some left-sided weakness. The patient fell in the hospital and landed on an outstretched right arm. She had immediate right arm and wrist pain. X-rays revealed a severely comminuted right distal radius fracture. She is currently awake and alert on the orthopedic floor. She complains of right wrist pain. She does not recall having dizziness, syncope or loss of consciousness. She is a relatively poor historian. Pain is worse with movement and is improved with rest. PAST MEDICAL HISTORY Illnesses: 1. Diabetes 2. Chronic back pain 3. COPD 4. History of CVA. SURGERIES 1. Right knee and ankle surgeries 2. Cholecystectomy 3. Left ankle surgery MEDICATIONS Medications include: 1. Glimepiride 2. Prozac 3. Lovastatin 4. Tizanidine 5. Plavix 6. Tramadol 7. Gabapentin 8. Temazepam 9. Abilify 10. Omeprazole ALLERGIES NO KNOWN DRUG ALLERGIES. FAMILY HISTORY Positive for heart disease in the mother and colon cancer in her father. SOCIAL HISTORY The patient quit smoking in the 1980s. She denies alcohol, tobacco or drug use. REVIEW OF SYSTEMS The patient denies headache, visual changes, neck pain, chest pain, shortness of breath, abdominal pain, nausea, vomiting, recent weight loss or numbness or tingling of extremities. She complains of right wrist pain. Pain is worse with movement. PHYSICAL EXAMINATION The patient is a well-developed, well-nourished 81-year female in no acute distress. She is awake and alert. VITAL SIGNS: Temperature 99.3, pulse 98, respirations 19, blood pressure 146/93, O2 sat 92% on room air. HEAD: The patient is normocephalic. EYES: Pupils are equal. NECK: Soft and nontender. Trachea is midline. ABDOMEN: Soft, nontender and nondistended. EXTREMITIES: Examination of the right arm reveals no tenderness around her shoulder or elbow. She is diffusely tender around the wrist. He has good cap refill in all fingers. She has obvious deformity of the wrist. There is a 1-2 mm laceration over the volar aspect of the forearm. Examination of left arm reveals no pain with shoulder, elbow or wrist motion. Skin is intact. Radial pulses palpable. Sensation is intact. Examination of bilateral lower extremities reveals no obvious pain or deformity with hip, knee or ankle motion. Skin is intact. Dorsalis pedis pulses palpable. Sensation is intact to both feet. X-RAYS X-rays of right wrist were reviewed. X-rays reveal a severely comminuted intra-articular displaced right distal radius fracture. There is also a comminuted distal ulna fracture. IMPRESSION 1. Diabetes 2. COPD 3. History of recent CVA. 4. Comminuted displaced open right intra-articular distal radius and ulna fractures. PLAN Treatment options were discussed with the patient. At this point, I would recommend irrigation and debridement of open fracture, followed by possible open reduction, internal fixation and possible external fixation of right wrist. The risks of surgery include bleeding, infection, injury to arteries, nerves and blood vessels, nonunion, malunion, painful hardware, infection, as well as medical complications including blood clot, stroke, heart attack and . All questions were answered. I will plan on surgery today. A mid-level provider in my office (nurse practitioner or physician assistant family teacher) may see this patient on follow-up visits and continue to implement the objectives of this plan including: Starting or adjusting medications, injections , cast application, orthotics, brace application, physical therapy, radiological studies (including x-ray, MRI, CT, ultrasound, bone scan), vascular studies, neurologic studies, specialist consultation, and proceeding with surgical management, as appropriate. MD DANIELA Forbes/MILA /11:40 AM /12:35 PM KAYLENE
[2016-12-01] MEDS: VANCOMYCIN INJ 1,500 MG in SODIUM CHLORID 0.9% 500 ML INJ 500 ML IV SCH (13:00)
[2016-12-01] MEDS ORDERED: ONDANSETRON HCL 4 MG/2 ML VIAL IV PUSH ONE (13:56)
[2016-12-01] MEDS ORDERED: PHENYLEPH/NS 1000 MCG/10 ML SYR IV ONE (13:56)
[2016-12-01] MEDS ORDERED: NEOSTIGMINE 3 MG/3 ML SYR IV ONE (13:56)
[2016-12-01] MEDS ORDERED: LACTATED RINGER'S 1000 ML INJ 1,000 ML IV ONE (13:56)
[2016-12-01] MEDS ORDERED: PROPOFOL 200 MG/20 ML AMP IV ONE (13:56)
--- NOTE | 2016-12-01 14:23 | EKG ---
Date Performed: 12/01/2016 Time Performed: 07:33:14 PTAGE: 81 years EKG: Sinus rhythm WITH OCCASIONAL SUPRAVENTRICULAR PREMATURE COMPLEXES BORDERLINE ECG Compared to the PREVIOUS TRACING PAC is new, otherwise no significant change PREVIOUS TRACIN 0 11.17 DOCTOR: Ace Pickard Interpretating Date/Time 12/01/2016 14:22:35
[2016-12-01] MEDS ORDERED: VANCOMYCIN 500 MG/NS 100 ML IV ONE ×2 (15:00)
--- NOTE | 2016-12-01 15:48 | RADRPT ---
EXAM DATE/TIME: 12/01/2016 11:16 [facility] COMPARISON: No previous studies available for comparison. INDICATIONS : ORIF of the right wrist. MEDICAL HISTORY : Chronic obstructive pulmonary disease. Diabetes mellitus type II. Stroke. SURGICAL HISTORY : None. ENCOUNTER: Subsequent ACUITY: 3 days PAIN SCORE: Non-responsive. LOCATION: Right wrist. FINDINGS/CONCLUSION: Two-view right wrist demonstrates the patient has had open reduction interna l fixation of the distal radial fracture. The fracture fragments are in much better alignment than t he preoperative study. There still is some step off of the radial articulating surface. The ulnar f racture is also much better aligned. The visualized carpal bones are unremarkable. Vikas Aguilar MD on December 01, 2016 at 15:36 Board Certified Radiologist. This report was verified electronically.
[2016-12-01 16:00] VITALS: BP 113/49; PULSE 88; RESP 19; TEMP 99.7; O2SAT 94
[2016-12-01] MEDS: ACETAMINOPHEN/HYDROcodone 325 MG/7.5 MG TAB PO PRN (18:33)
--- NOTE | 2016-12-01 19:19 | HHI.PR ---
Subjective Remarks F/u for neurological/CVA like symptoms which have resolved. Also f/u on right arm fracture in hospital. POD #0, pt denies any acute concerns, appears drowsy Objective Vital Signs Date Time Temp Pulse Resp B/P (MAP) Pulse Ox O2 Delivery O2 Flow Rate FiO2 12/01/16 16:39 Nasal Cannula 2.00 12/01/16 16:00 99.7 88 19 113/49 (70) 94 12/01/16 13:45 97.0 90 20 122/77 (92) 98 Nasal Cannula 2 12/01/16 13:30 90 20 95/46 (62) 89 Nasal Cannula 2 12/01/16 13:15 85 20 124/55 (78) 99 Nasal Cannula 2 12/01/16 13:00 82 20 145/67 (93) 97 Nasal Cannula 2 12/01/16 12:45 86 20 155/65 (95) 93 Nasal Cannula 4 12/01/16 12:30 81 20 133/81 (98) 95 Nasal Cannula 4 12/01/16 12:15 98.0 86 20 131/84 (100) 92 Nasal Cannula 4 12/01/16 08:00 99.3 98 19 146/63 (90) 92 12/01/16 04:00 98.9 94 16 144/59 (87) 94 12/01/16 00:00 96.0 97 19 144/66 (92) 94 11/30/16 20:00 98.5 94 18 135/63 (87) 95 11/30/16 20:00 95 I/O 11/30/16 11/30/16 11/30/16 12/01/16 12/01/16 12/01/16 07:00 15:00 23:00 07:00 15:00 23:00 Intake Total 200 ml 841 ml 550 ml Output Total 240 ml 450 ml Balance 200 ml 601 ml 100 ml Intake Oral 480 ml IV Total 200 ml 361 ml 200 ml Other 350 ml Output Urine Total 240 ml 400 ml Estimated Blood Loss 50 ml # Voids 3 Result Diagram: 11/30/16 1308 12/01/16 0703 Objective Remarks lying in bed, awake, drifts to sleep occasionally right arm in post op dressgin w/ external fixor unlabored breathing, on NC A/P Assessment and Plan (1) Urinary tract infection ICD Code: N39.0 - Urinary tract infection, site not specified Plan: Negative teddy in urine, continue cefepime (adjusted for coverage of open fracture) Follow-up cultures (2) History of CVA (cerebrovascular accident) ICD Code: Z86.73 - Personal history of transient ischemic attack (TIA), and cerebral infarction without residual deficits ymptoms of slurred speech have resolved. Continue with PT and OT Neurology consulted - appreciate recs ptn on plavix, aspirin atorvastatin (3) Weakness ICD Code: R53.1 - Weakness Plan: Patient has chronic degenerative joint disease and takes tramadol at home. Continue with PT and OT eval (4) Fall ICD Code: W19.XXXA - Unspecified fall, initial encounter Plan: Patient admits that she did not ask for assistance, the patient says that she slipped on some of her urine and loose stools (chronic incontinence) right upper extremity commuted fracture with open area of skin vancomycin and zosyn since pt has risk of wound contamination currently postop, ortho following, has external fixator Continue pain control, IV morphine for pain and Toradol Lewis Mondragon MD Dec 01, 2016 19:19
[2016-12-01 20:00] VITALS: BP 124/68; PULSE 97; RESP 16; TEMP 98.8; O2SAT 93
[2016-12-01] MEDS: MORPHINE SULFATE 4 MG/ML INJ IV PUSH PRN (21:23)
[2016-12-02] VITALS (9 sets, daily range): BP systolic 103–151; BP diastolic 55–74; PULSE 82–96; RESP 16–18; TEMP 97.2–99.2; O2SAT 86–95
[2016-12-02] MEDS: ACETAMINOPHEN/HYDROcodone 325 MG/7.5 MG TAB PO PRN ×5 (00:20→19:38)
[2016-12-02] MEDS: PIPERACILLIN/TAZ 3.375 GM VIAL 3.375 GM in SODIUM CHLORIDE 0.9% INJ 100 ML IV SCH ×2 (02:15→10:40)
[2016-12-02] MEDS: MORPHINE SULFATE 4 MG/ML INJ IV PUSH PRN (02:59)
--- NOTE | 2016-12-02 07:12 | PD.ORT.PN ---
Subjective Subjective Remarks Resting comfortably with no new complaints. Dressing is been reinforce due to bleeding Objective Vitals Vital Signs Date Time Temp Pulse Resp B/P (MAP) Pulse Ox O2 Delivery O2 Flow Rate FiO2 12/02/16 04:00 97.9 91 16 140/74 (96) 93 12/02/16 00:00 98.6 96 17 134/62 (86) 95 12/01/16 20:00 98.8 97 16 124/68 (86) 93 12/01/16 16:39 Nasal Cannula 2.00 12/01/16 16:00 99.7 88 19 113/49 (70) 94 12/01/16 13:45 97.0 90 20 122/77 (92) 98 Nasal Cannula 2 12/01/16 13:30 90 20 95/46 (62) 89 Nasal Cannula 2 12/01/16 13:15 85 20 124/55 (78) 99 Nasal Cannula 2 12/01/16 13:00 82 20 145/67 (93) 97 Nasal Cannula 2 12/01/16 12:45 86 20 155/65 (95) 93 Nasal Cannula 4 12/01/16 12:30 81 20 133/81 (98) 95 Nasal Cannula 4 12/01/16 12:15 98.0 86 20 131/84 (100) 92 Nasal Cannula 4 12/01/16 08:00 99.3 98 19 146/63 (90) 92 I/O 12/01/16 12/01/16 12/01/16 12/02/16 12/02/16 12/02/16 07:00 15:00 23:00 07:00 15:00 23:00 Intake Total 841 ml 550 ml 593 ml 582 ml Output Total 240 ml 450 ml Balance 601 ml 100 ml 593 ml 582 ml Intake Oral 480 ml 480 ml 300 ml IV Total 361 ml 200 ml 113 ml 282 ml Other 350 ml Output Urine Total 240 ml 400 ml Estimated Blood Loss 50 ml Bladder Scan Volume Amount 677 ml # Voids 1 3 Result Diagram: 11/30/16 1308 12/01/16 0703 Imaging Last 72 hours Impressions Wrist X-Ray 12/01/16 0000 Signed Impressions: Service Date/Time: November 11:16 - CONCLUSION: Two-view right wrist demonstrates the patient has had open reduction internal fixation of the distal radial fracture. The fracture fragments are in much better alignment than the preoperative study. There still is some step off of the radial articulating surface. The ulnar fracture is also much better aligned. The visualized carpal bones are unremarkable. Vikas Aguilar MD Wrist X-Ray 11/30/16 0000 Signed Impressions: Service Date/Time: Wednesday, November 30, 2016 06:53 - CONCLUSION: Severe comminuted fracture dislocation of the right distal radius and ulna extending into the radiocarpal joint. Carpal alignment difficult to assess due to severe deformity. Nehemiah Aquino MD Upper Extremity CT 11/30/16 0000 Signed Impressions: Service Date/Time: Wednesday, November 30, 2016 10:03 - CONCLUSION: Common fractures of the distal radius and ulna as described above. The radial articulating surface is markedly comminuted with a portion of the radius scaphoid articulation remaining . There is significant angulation of the radial fracture and displacement of fragments posteriorly with ulnar angulation. Vikas Aguilar MD Objective Remarks Right upper extremity: Clean dressings intact with mild drainage noted. External fixation in place. Intact sensation in all her fingers but does have weak extension and flexion secondary to pain Assessment & Plan Assessment and Plan 1) Right Distal Radius Fx - ORIF and external fixation POD 1 Maintain dressings. Begin daily dressing changes POD 2 with pin care twice a day Nonweightbearing right upper extremity. In sling when standing Plan for discharge to rehabilitation tomorrow or the next day Follow-up with Dr. Sharif or [facility] in 2 weeks Agusto Moreno Jr. Dec 02, 2016 07:12
[2016-12-02] MEDS: CLOPIDOGREL 75 MG TAB PO SCH (09:00)
[2016-12-02] MEDS: ASPIRIN EC 81 MG TABEC PO SCH (09:00)
[2016-12-02] MEDS: SODIUM CHLORIDE 0.9% FLUSH 5 ML FLUSH IV FLUSH SCH ×2 (09:00→19:38)
[2016-12-02] MEDS: ARIPiprazole 2 MG TAB PO SCH (09:29)
[2016-12-02] MEDS: FERROUS SULFATE 325 MG (65 MG ELEMENTAL IRON) TAB PO SCH ×2 (09:31→18:00)
[2016-12-02] MEDS: ATORVASTATIN 40 MG TAB PO SCH (09:31)
[2016-12-02] MEDS: FLUoxetine HCL 10 MG CAP PO SCH (09:31)
[2016-12-02] MEDS: VANCOMYCIN INJ 1,500 MG in SODIUM CHLORID 0.9% 500 ML INJ 500 ML IV SCH (12:22)
[2016-12-02] MEDS: PIPERACIL-TAZO 3.375 GM PREMIX 50 ML IV SCH ×2 (14:45→19:38)
--- NOTE | 2016-12-02 19:33 | HHI.PR ---
Subjective Remarks F/u for neurological/CVA like symptoms which have resolved. Also f/u on right arm fracture in hospital. POD #1 - has external fixator in place. Nursing reports that the patient did desat to the 70s while she was slouched forward with her neck, responded nicely with 2 L of oxygen. Patient complains of chest pain that worsens with coughing Objective Vital Signs Date Time Temp Pulse Resp B/P (MAP) Pulse Ox O2 Delivery O2 Flow Rate FiO2 12/02/16 16:00 99.1 85 18 130/60 (83) 95 12/02/16 12:00 98.0 82 17 103/55 (71) 92 12/02/16 09:31 95 Nasal Cannula 2.00 12/02/16 08:00 99.2 96 18 151/63 (92) 94 12/02/16 04:00 97.9 91 16 140/74 (96) 93 12/02/16 00:00 98.6 96 17 134/62 (86) 95 12/01/16 20:00 98.8 97 16 124/68 (86) 93 I/O 12/01/16 12/01/16 12/01/16 12/02/16 12/02/16 12/02/16 07:00 15:00 23:00 07:00 15:00 23:00 Intake Total 841 ml 550 ml 593 ml 582 ml 480 ml Output Total 240 ml 450 ml Balance 601 ml 100 ml 593 ml 582 ml 480 ml Intake Oral 480 ml 480 ml 300 ml 480 ml IV Total 361 ml 200 ml 113 ml 282 ml Other 350 ml Output Urine Total 240 ml 400 ml Estimated Blood Loss 50 ml Bladder Scan Volume Amount 677 ml # Voids 1 3 2 # Bowel Movements 0 Result Diagram: 11/30/16 1308 12/01/16 0703 Objective Remarks lying in bed, awake, right arm in post op dressgin w/ external fixor, fingers appear normal in color , no clubbing no cyanosis Mild sternal tenderness to palpation where patient is complaining of chest pain unlabored breathing, on NC No lower extremity edema A/P Assessment and Plan (1) Urinary tract infection ICD Code: N39.0 - Urinary tract infection, site not specified Plan: Negative teddy in urine, vancomycin and zosyn, UTI of e.coli Follow-up cultures (2) History of CVA (cerebrovascular accident) ICD Code: Z86.73 - Personal history of transient ischemic attack (TIA), and cerebral infarction without residual deficits Symptoms of slurred speech have resolved. Continue with PT and OT Neurology consulted - appreciate recs - no new infarc per their assessment - suspect UTI caused transiently worsening of chronic deficit symptoms ptn on plavix, aspirin atorvastatin (3) Weakness ICD Code: R53.1 - Weakness Plan: Patient has chronic degenerative joint disease and takes tramadol at home. Continue with PT and OT eval (4) Fall ICD Code: W19.XXXA - Unspecified fall, initial encounter Plan: Patient admits that she did not ask for assistance, the patient says that she slipped on some of her urine and loose stools (chronic incontinence) right upper extremity commuted fracture with open area of skin vancomycin and zosyn since pt has risk of wound contamination currently postop, ortho following, has external fixator Continue pain control Hypoxia - new problem, possibly intermittent/positional , instructed nursing to test pulse ox w/ patient sitting up, suspect sleep apnea, supplement o2 as needed, do not suspect PE or PNA Lewis Mondragon MD Dec 02, 2016 19:33
[2016-12-03] VITALS (7 sets, daily range): BP systolic 104–140; BP diastolic 46–79; PULSE 79–97; RESP 16–21; TEMP 97.7–99.6; O2SAT 90–98
[2016-12-03] MEDS: ACETAMINOPHEN/HYDROcodone 325 MG/7.5 MG TAB PO PRN ×5 (00:07→21:48)
[2016-12-03] MEDS: PIPERACIL-TAZO 3.375 GM PREMIX 50 ML IV SCH ×4 (01:48→21:49)
--- NOTE | 2016-12-03 08:35 | PD.ORT.PN ---
Subjective Post Op Day #: 2 Subjective Remarks R arm painful. Objective Vitals Vital Signs Date Time Temp Pulse Resp B/P (MAP) Pulse Ox O2 Delivery O2 Flow Rate FiO2 12/03/16 04:00 97.9 89 16 138/68 (91) 91 12/03/16 00:00 98.2 85 17 124/60 (81) 92 12/02/16 23:55 16 89 12/02/16 20:01 16 91 12/02/16 20:00 97.2 89 16 134/59 (84) 86 12/02/16 16:00 99.1 85 18 130/60 (83) 95 12/02/16 12:00 98.0 82 17 103/55 (71) 92 12/02/16 09:31 95 Nasal Cannula 2.00 I/O 12/02/16 12/02/16 12/02/16 12/03/16 12/03/16 12/03/16 07:00 15:00 23:00 07:00 15:00 23:00 Intake Total 582 ml 480 ml 1394 ml 996 ml Balance 582 ml 480 ml 1394 ml 996 ml Intake Oral 300 ml 480 ml 600 ml 360 ml IV Total 282 ml 794 ml 636 ml Bladder Scan Volume Amount 677 ml # Voids 3 2 2 2 # Bowel Movements 0 1 Result Diagram: 11/30/16 1308 12/01/16 0703 Imaging Last 72 hours Impressions Wrist X-Ray 12/01/16 0000 Signed Impressions: Service Date/Time: November 11:16 - CONCLUSION: Two-view right wrist demonstrates the patient has had open reduction internal fixation of the distal radial fracture. The fracture fragments are in much better alignment than the preoperative study. There still is some step off of the radial articulating surface. The ulnar fracture is also much better aligned. The visualized carpal bones are unremarkable. Vikas Aguilar MD Wrist X-Ray 11/30/16 0000 Signed Impressions: Service Date/Time: Wednesday, November 30, 2016 06:53 - CONCLUSION: Severe comminuted fracture dislocation of the right distal radius and ulna extending into the radiocarpal joint. Carpal alignment difficult to assess due to severe deformity. Nehemiah Aquino MD Upper Extremity CT 11/30/16 0000 Signed Impressions: Service Date/Time: Wednesday, November 30, 2016 10:03 - CONCLUSION: Common fractures of the distal radius and ulna as described above. The radial articulating surface is markedly comminuted with a portion of the radius scaphoid articulation remaining . There is significant angulation of the radial fracture and displacement of fragments posteriorly with ulnar angulation. Vikas Aguilar MD Objective Remarks Right upper extremity: Clean dressings intact with mild drainage noted. External fixation in place. Intact sensation in all her fingers but does have weak extension and flexion secondary to pain Assessment & Plan Ortho Post Op Day #: 2 Problem List: Assessment and Plan 1) Right Distal Radius Fx - ORIF and external fixation POD 2 Maintain dressings. Begin daily dressing changes today with pin care twice a day Nonweightbearing right upper extremity. In sling when standing Plan for discharge to rehabilitation today or tomorrow - ortho stable and cleared when medically stable. Follow-up with Dr. Sharif or PA in 2 weeks Chava Jefferson Dec 03, 2016 08:35
[2016-12-03] MEDS: SODIUM CHLORIDE 0.9% FLUSH 5 ML FLUSH IV FLUSH SCH (09:00)
[2016-12-03] MEDS: FLUoxetine HCL 10 MG CAP PO SCH (09:23)
[2016-12-03] MEDS: ARIPiprazole 2 MG TAB PO SCH (09:23)
[2016-12-03] MEDS: ATORVASTATIN 40 MG TAB PO SCH (09:24)
[2016-12-03] MEDS: CLOPIDOGREL 75 MG TAB PO SCH (09:24)
[2016-12-03] MEDS: FERROUS SULFATE 325 MG (65 MG ELEMENTAL IRON) TAB PO SCH ×2 (09:24→17:20)
[2016-12-03] MEDS: ASPIRIN EC 81 MG TABEC PO SCH (09:24)
--- NOTE | 2016-12-03 12:40 | RADRPT ---
EXAM DATE/TIME: 12/03/2016 12:04 [facility] COMPARISON: CHEST PA & LAT, November 28, 2016, 23:41. INDICATIONS : Cough with crackling sound. MEDICAL HISTORY : None. SURGICAL HISTORY : None. ENCOUNTER: Initial ACUITY: 3 days PAIN SCORE: 0/10 LOCATION: Bilateral chest FINDINGS: Redemonstration of elevation of the right hemidiaphragm. Slight progression of bilateral interstitia l prominence. Mild bibasilar airspace disease largely unchanged. Cardiomediastinal contours are stabl e. Remainder of exam is unchanged. CONCLUSION: 1. Mild worsening interstitial prominence consistent with mild worsening interstitial edema versus in terstitial pneumonia. 2. Stable bibasilar airspace disease, likely atelectasis. Donn Ko MD on December 03, 2016 at 12:36 Board Certified Radiologist. This report was verified electronically.
[2016-12-03] MEDS ORDERED: PHARMACY ORDERED LAB ONE (12:45)
[2016-12-03] MEDS: VANCOMYCIN INJ 1,500 MG in SODIUM CHLORID 0.9% 500 ML INJ 500 ML IV SCH ×2 (12:59→13:00)
--- NOTE | 2016-12-03 13:34 | HHI.PR ---
Subjective Remarks F/u for neurological/CVA like symptoms which have resolved. F/u also right arm fracture and f/u on newly discovered hypoxia (on RA yesterday) which has persisted since last night on room air . Nursing reports the patient would desaturate to 88% while sitting upright . Patient says that she has mild cough but denies any chest pain on deep inspiration, denies any shortness of breath. No fever reported by nursing. POD #2 - has external fixator in place. Objective Vital Signs Date Time Temp Pulse Resp B/P (MAP) Pulse Ox O2 Delivery O2 Flow Rate FiO2 12/03/16 12:00 98.7 93 19 121/51 (74) 93 12/03/16 08:00 97.7 97 19 104/79 (87) 93 12/03/16 04:00 97.9 89 16 138/68 (91) 91 12/03/16 00:00 98.2 85 17 124/60 (81) 92 12/02/16 23:55 16 89 12/02/16 20:01 16 91 12/02/16 20:00 97.2 89 16 134/59 (84) 86 12/02/16 16:00 99.1 85 18 130/60 (83) 95 I/O 12/02/16 12/02/16 12/02/16 12/03/16 12/03/16 12/03/16 07:00 15:00 23:00 07:00 15:00 23:00 Intake Total 582 ml 480 ml 1394 ml 996 ml Balance 582 ml 480 ml 1394 ml 996 ml Intake Oral 300 ml 480 ml 600 ml 360 ml IV Total 282 ml 794 ml 636 ml Bladder Scan Volume Amount 677 ml # Voids 3 2 2 2 # Bowel Movements 0 1 Result Diagram: 11/30/16 1308 12/03/16 0835 Imaging Last 24 hours Impressions Chest X-Ray 12/03/16 0000 Signed Impressions: Service Date/Time: Saturday, December 03, 2016 12:04 - CONCLUSION: 1. Mild worsening interstitial prominence consistent with mild worsening interstitial edema versus interstitial pneumonia. 2. Stable bibasilar airspace disease, likely atelectasis. Donn Ko MD Objective Remarks lying in bed, awake, sitting in bed right arm in post op dressing w/ external fixor, fingers appear normal in color , no clubbing no cyanosis unlabored breathing, not on nasal cannula. Has obvious bibasilar rales when heard posteriorly No lower extremity edema A/P Assessment and Plan Hypoxia on RA (patient does not have O2 at home)- will workup further since it is not resolving since last night on RA - Patient clinically does not appear to have a pulmonary embolism, her well's criteria puts her at a low risk. I independently reviewed the chest x-ray that I ordered as result of her persistent hypoxia (despite optimal body positioning ) and that shows findings are very suggestive of pulmonary edema and not a pneumonia, patient clinically does not have a pneumonia. I will start her on IV diuresis and keep her here at least another day to look for improvement, we' ll order a BNP. An echocardiogram that was ordered 4 days ago shows an intact ejection fraction of 60-65% no obvious wall thickness abnormalities noted. (1) Urinary tract infection ICD Code: N39.0 - Urinary tract infection, site not specified Plan: Negative teddy in urine, on abx, UTI of e.coli Follow-up cultures (2) History of CVA (cerebrovascular accident) ICD Code: Z86.73 - Personal history of transient ischemic attack (TIA), and cerebral infarction without residual deficits Symptoms of slurred speech have resolved. Continue with PT and OT Neurology consulted - appreciate recs - no NEW infarct per their assessment - suspect UTI caused transiently worsening of chronic deficit symptoms ptn on plavix, aspirin atorvastatin (3) Weakness ICD Code: R53.1 - Weakness Plan: Patient has chronic degenerative joint disease and takes tramadol at home. Continue with PT and OT eval (4) Fall ICD Code: W19.XXXA - Unspecified fall, initial encounter Plan: Patient admits that she did not ask for assistance, the patient says that she slipped on some of her urine and loose stools (chronic incontinence) right upper extremity commuted fracture with open area of skin vancomycin and zosyn since pt has risk of wound contamination currently postop, ortho following, has external fixator - clear for d/c from ortho standpoint - PT recommends rehab Continue pain control Lewis Mondragon MD Dec 03, 2016 13:34
[2016-12-03] MEDS: FUROSEMIDE 40 MG/4 ML VIAL IV PUSH SCH ×2 (14:48→17:20)
[2016-12-03] MEDS ORDERED: VANCOMYCIN INJ 1,500 MG in SODIUM CHLORID 0.9% 500 ML INJ 500 ML IV SCH (18:00)
[2016-12-03] MEDS: traMADol HCL 50 MG TAB PO PRN (19:40)
[2016-12-03] MEDS: TEMAZEPAM 15 MG CAP PO PRN (21:47)
[2016-12-04 00:30] VITALS: BP 116/56; PULSE 91; RESP 18; TEMP 98.9; O2SAT 98
[2016-12-04] MEDS: ACETAMINOPHEN/HYDROcodone 325 MG/7.5 MG TAB PO PRN ×4 (01:07→12:58)
[2016-12-04] MEDS: PIPERACIL-TAZO 3.375 GM PREMIX 50 ML IV SCH ×3 (02:55→13:11)
[2016-12-04 04:12] VITALS: BP 125/58; PULSE 83; RESP 18; TEMP 98.7; O2SAT 97
[2016-12-04 08:00] VITALS: BP 158/69; PULSE 83; RESP 17; TEMP 98; O2SAT 100
--- NOTE | 2016-12-04 08:18 | PD.ORT.PN ---
Subjective Subjective Remarks R arm painful. Objective Vitals Vital Signs Date Time Temp Pulse Resp B/P (MAP) Pulse Ox O2 Delivery O2 Flow Rate FiO2 12/04/16 04:12 98.7 83 18 125/58 (80) 97 12/04/16 00:30 98.9 91 18 116/56 (76) 98 12/03/16 20:15 99.6 90 18 140/46 (77) 97 12/03/16 18:18 98 Nasal Cannula 2.00 12/03/16 16:00 98.9 79 21 139/55 (83) 90 12/03/16 12:00 98.7 93 19 121/51 (74) 93 I/O 12/03/16 12/03/16 12/03/16 12/04/16 12/04/16 12/04/16 07:00 15:00 23:00 07:00 15:00 23:00 Intake Total 996 ml 720 ml 240 ml 240 ml Balance 996 ml 720 ml 240 ml 240 ml Intake Oral 360 ml 720 ml 240 ml 240 ml IV Total 636 ml # Voids 2 8 2 3 # Bowel Movements 1 3 1 2 Result Diagram: 11/30/16 1308 12/03/16 0835 Imaging Last 72 hours Impressions Wrist X-Ray 12/01/16 0000 Signed Impressions: Service Date/Time: November 11:16 - CONCLUSION: Two-view right wrist demonstrates the patient has had open reduction internal fixation of the distal radial fracture. The fracture fragments are in much better alignment than the preoperative study. There still is some step off of the radial articulating surface. The ulnar fracture is also much better aligned. The visualized carpal bones are unremarkable. Vikas Aguilar MD Wrist X-Ray 11/30/16 0000 Signed Impressions: Service Date/Time: Wednesday, November 30, 2016 06:53 - CONCLUSION: Severe comminuted fracture dislocation of the right distal radius and ulna extending into the radiocarpal joint. Carpal alignment difficult to assess due to severe deformity. Nehemiah Aquino MD Upper Extremity CT 11/30/16 0000 Signed Impressions: Service Date/Time: Wednesday, November 30, 2016 10:03 - CONCLUSION: Common fractures of the distal radius and ulna as described above. The radial articulating surface is markedly comminuted with a portion of the radius scaphoid articulation remaining . There is significant angulation of the radial fracture and displacement of fragments posteriorly with ulnar angulation. Vikas Aguilar MD Objective Remarks Right upper extremity: dressings intact with mild drainage noted. External fixation in place. Intact sensation in all her fingers but does have weak extension and flexion secondary to pain Assessment & Plan Assessment and Plan 1) Right Distal Radius Fx - ORIF and external fixation POD 3 Maintain dressings. Begin daily dressing changes today with pin care twice a day Nonweightbearing right upper extremity. In sling when standing Plan for discharge to rehabilitation - ortho stable and cleared when medically stable. possible pneumonia Follow-up with Dr. Sharif or PA in 2 weeks Chava Jefferson Dec 04, 2016 08:18
[2016-12-04] MEDS: SODIUM CHLORIDE 0.9% FLUSH 5 ML FLUSH IV FLUSH SCH (09:00)
[2016-12-04] MEDS: ASPIRIN EC 81 MG TABEC PO SCH (09:17)
[2016-12-04] MEDS: FERROUS SULFATE 325 MG (65 MG ELEMENTAL IRON) TAB PO SCH (09:18)
[2016-12-04] MEDS: ATORVASTATIN 40 MG TAB PO SCH (09:18)
[2016-12-04] MEDS: FLUoxetine HCL 10 MG CAP PO SCH (09:18)
[2016-12-04] MEDS: CLOPIDOGREL 75 MG TAB PO SCH (09:18)
[2016-12-04] MEDS: FUROSEMIDE 40 MG/4 ML VIAL IV PUSH SCH (09:19)
[2016-12-04] MEDS: ARIPiprazole 2 MG TAB PO SCH (09:19)
[2016-12-04 09:41] VITALS: O2SAT 96
[2016-12-04 10:17] VITALS: PULSE 82
[2016-12-04] MEDS ORDERED: RESP: ALBUTEROL 2.5 MG/IPRATROPIUM 0.5 MG NEB (SCH) NEB (11:00)
[2016-12-04] MEDS ORDERED: BUDESONIDE-FORMOTEROL 80/4.5 MCG INHALER INH SCH (11:00)
[2016-12-04] MEDS ORDERED: ATOR40TA16 PO (11:05)
[2016-12-04] MEDS ORDERED: FURO20TA PO (11:05)
[2016-12-04] MEDS ORDERED: MACR100C2 PO (11:05)
--- NOTE | 2016-12-04 11:06 | HHI.DCPOC ---
Discharge Care Plan Additional Problems right humerus fracture Pulmonary edema Goals to Promote Your Health * To prevent worsening of your condition and complications * To maintain your health at the optimal level Directions to Meet Your Goals Take your medications as prescribed Follow your dietary instruction Follow activity as directed Keep your appointments as scheduled Take your immunizations and boosters as scheduled If your symptoms worsen call your PCP, if no PCP go to Urgent Care Center or Emergency Room Smoking is Dangerous to Your Health. Avoid second hand smoke Call the 24-hour hour crisis hotline for domestic abuse at Lewis Mondragon MD Dec 04, 2016 11:06
[2016-12-04] MEDS ORDERED: SYMB80AE INH (11:12)
[2016-12-04] MEDS ORDERED: VENTAER INH (11:13)
--- NOTE | 2016-12-04 11:13 | HHI.DS ---
Discharge Summary Admission Date Nov 30, 2016 at 11:29 Discharge Date: Dec 04, 2016 Admitting Diagnosis UTI, unsteady gait r/o CVA (1) Urinary tract infection ICD Code: N39.0 - Urinary tract infection, site not specified (2) History of CVA (cerebrovascular accident) ICD Code: Z86.73 - Personal history of transient ischemic attack (TIA), and cerebral infarction without residual deficits (3) Weakness ICD Code: R53.1 - Weakness (4) Fall ICD Code: W19.XXXA - Unspecified fall, initial encounter Procedures none Brief History - From Admission Written by Cedric Tamayo, acting as scribe for Dr. Gonzalez on 11/29/16 at 11: 42. 81-year-old female with known history of CVA, recent urinary tract infection, chronic back pain, chronic obstructive pulmonary disease, arthritis, diabetes who presented to hospital for multiple symptoms. Patient indicates that she was just recently admitted to the hospital in [facility] and treated for urinary tract infection. Patient discharged home on amoxicillin she did not feel that the infection was going away. She was told that she needed to change her antibiotics to another medication, however it would interfere with her diabetic medication. Patient's symptoms Ressie got worse, she started developing weakness, fatigue, slurred speech. Patient thought that she was having a stroke again so she came to the hospital for evaluation. Patient's symptoms have thus resolved since being in the emergency department. CT scan did not indicate any acute abnormality. Workup did indicate urinary tract infection without any signs of sepsis. It was recommended that the patient be admitted for neurological evaluation. Patient denies any symptoms at this time. CBC/BMP: 11/30/16 1308 12/03/16 0835 Significant Findings Laboratory Tests Test 12/03/16 08:35 12/03/16 16:08 Estimat Glomerular Filtration Rate 70 ML/MIN (>89) B-Type Natriuretic Peptide 198 PG/ML (0-100) Vancomycin Level Trough 13.0 MCG/ML (5.0-10.0) PE at Discharge Slurred speech improved GENERAL: This is a well-nourished, well-developed patient, in no apparent distress. CARDIOVASCULAR: Regular rate and rhythm without murmurs, gallops, or rubs. RESPIRATORY: Clear to auscultation. Breath sounds equal bilaterally. No wheezes , rales, or rhonchi. GASTROINTESTINAL: Abdomen soft, non-tender, nondistended. Normal active bowel sounds MUSCULOSKELETAL: Right extremity splinted, other 3 Extremities without clubbing , cyanosis, or edema. NEURO: Alert & Oriented x4 to person, place, time, situation. Moves all ext x4 Hospital Course Pt was admitted, started on seizure tx. Had an EEG done which was unremarkable. SEISMIC PROSPECTING OBSERVER imaging showed temporal lobe edema which was possibly suggestive of infiltrate vs mass. NSG was consulted and the Pt Condition on Discharge: Stable Discharge Disposition: Disch to Another Hospital Discharge Time: > 30 minutes Lewis Mondragon MD Dec 04, 2016 11:13
[2016-12-04] MEDS ORDERED: POTA-243 PO (11:15)
[2016-12-04] MEDS ORDERED: POTASSIUM CHLORIDE 10 MEQ CONTROLLED RELEASE TAB PO ONE (11:15)
[2016-12-04] MEDS ORDERED: TRAM50TA PO (11:18)
[2016-12-04 12:00] VITALS: BP 107/40; PULSE 80; RESP 17; TEMP 98.4; O2SAT 90
[2016-12-04] MEDS ORDERED: TEMA30CA PO (12:54)
[2016-12-04] MEDS ORDERED: PHARMACY ORDERED LAB ONE (17:45)
== END 2016-12-04 17:45 | DRG 510 ==
LOC: PHED 18:58 → PHEDA 23:36 → PH5A 11-29 12:05 → OBSVTOIN 11-30 11:29 → N06B 11-30 20:45
PROVIDERS: ADMIT Internal Medicine; ATTEND Internal Medicine
PROC: 0PHH05Z Insertion of External Fixation Device into Right Radius, Open Approach (ICD-10-PCS; 2016-12-01)
PROC: 0PSH04Z Reposition Right Radius with Internal Fixation Device, Open Approach (ICD-10-PCS; principal; 2016-12-01 10:22)
DX: S52.571B Other intraarticular fracture of lower end of right radius, initial encounter for open fracture type I or II (principal); J18.9 Pneumonia, unspecified organism; J81.1 Chronic pulmonary edema; N39.0 Urinary tract infection, site not specified; J44.9 Chronic obstructive pulmonary disease, unspecified; E11.9 Type 2 diabetes mellitus without complications; J44.0 Chronic obstructive pulmonary disease with (acute) lower respiratory infection; J98.11 Atelectasis; Z68.41 Body mass index [BMI] 40.0-44.9, adult; S52.601B Unspecified fracture of lower end of right ulna, initial encounter for open fracture type I or II; R15.9 Full incontinence of feces; R47.81 Slurred speech; B96.20 Unspecified Escherichia coli [E. coli] as the cause of diseases classified elsewhere; E66.9 Obesity, unspecified; R09.02 Hypoxemia; G89.29 Other chronic pain; M54.9 Dorsalgia, unspecified; M19.90 Unspecified osteoarthritis, unspecified site; W01.0XXA Fall on same level from slipping, tripping and stumbling without subsequent striking against object, initial encounter; Y92.231 Patient bathroom in hospital as the place of occurrence of the external cause; Z79.84 Long term (current) use of oral hypoglycemic drugs; Z86.73 Personal history of transient ischemic attack (TIA), and cerebral infarction without residual deficits; Z87.891 Personal history of nicotine dependence
CPT/HCPCS: 70450; 70544; 70551; 71010; 71020; 73100; 73200; 76000; 76937; 80048; 80053; 80061; 80202; 81001; 82565; 82948; 83036; 83880; 85025; 85610; 85730; 87040; 87077; 87086; 87186; 90686; 93005; 93306; 93880; 94664; 96365; 96366; C1713; G0378; G8987-GO; G8987-GP; G8988-GO; G8988-GP; G8996-GN; G8997-GN; G8998-GN; G9162-GN; G9163-GN; G9164-GN; J0131; J0690; J0696; J1580; J1885; J1940; J2270; J2370; J2405; J2543; J2710; J3010; J3370; J7040; J7120; J7613; Q2038

== ENCOUNTER → 2017-01-11 | Day surgery (SDC) | payer OTHER ==
[~2017-01-11] VITALS: Ht 154.9 cm; Wt 91.6 kg
[~2017-01-11] MED LIST: ABIL2TAB2 PO; ACETAMINOPHEN/HYDROcodone 325 MG/7.5 MG TAB PO PRN; ATOR40TA16 PO; CALCTAB19 PO; CEPH-460 PO; CHLORHEXIDINE GLUCONATE 2 % 1 PACK (2 CLOTHS) TOPICAL PRN; CHLORHEXIDINE GLUCONATE 4% SOLN 120 ML BTL TOPICAL SCH; ERGO1CAP30 PO; FERR325T8 PO; FLUO-1 PO; FURO20TA PO; GABA100C4 PO; GLIM1TAB PO; HYDR-3288 PO; HYDR-3580 PO; INSULIN HUMAN REGULAR 1,000 UNITS/10 ML VIAL SQ PRN; LACTATED RINGER'S 1000 ML IV PRN; LIDOCAINE HCL 1% PF 5 ML AMPULE OTHER ONE; LOVA20TA PO; MACR100C2 PO; METOPROLOL TARTRATE 25 MG TAB PO PRN; MIDAZOLAM HCL 2 MG/2 ML VIAL IV ONE; MORPHINE SULFATE 2 MG/ML INJ IV PUSH PRN; OMEP20TA PO; ONDANSETRON HCL 4 MG/2 ML VIAL IV PUSH PRN; PLAV75TA29 PO; POTA-243 PO; POVIDONE IODINE 5% (ANTISEPSIS KIT) 4 APPLICATIONS EACH NARE PRN; PROPOFOL 200 MG/20 ML AMP IV ONE; SODIUM CHLORID 0.9% 500 ML IV PRN; SODIUM CHLORIDE 0.9% FLUSH 10 ML FLUSH IV FLUSH PRN; SODIUM CHLORIDE 0.9% FLUSH 10 ML FLUSH IV FLUSH SCH; SYMB80AE INH; TEMA30CA PO; TIZA4CAP3 PO; TRAM50TA PO; VANCOMYCIN 1000 MG/NS 250 ML (for <70 kg) IV SCH; VENTAER INH; VITA2000 PO; ceFAZolin 2 GM PREMIX 50 ML IV SCH
--- NOTE | 2017-01-11 07:31 | PD.OP ---
cc: Petey Sharif MD Operative Report Date of Surgery: Jan 11, 2017 Preoperative Diagnosis: Healing right distal radius fracture with retained external fixation Postoperative Diagnosis: Procedure: Removal of external fixation Surgeon: Petey Sharif Players Assistant(s): MANOLO Lewis PA-C Operation and Findings: Donna is known to me from previous treatment of right distal radius fracture treated with open reduction internal fixation as well as external fixation. Informed consent was obtained preoperatively for external fixator removal. Patient was brought to the operating room. She was given IV sedation. Timeout procedure was performed. Attention was now turned towards removal external fixation. Clamps were loosened. Clamps and bars were removed. The pins were also removed. Pin sites were now cleaned with curettes. Dressings were applied. Patient was awakened and transferred to recovery room in stable condition. She was placed into a removable wrist splint. Petey Sharif MD Jan 11, 2017 07:31
[2017-01-11 07:45] VITALS: BP_DIAS 60
[2017-01-11 08:50] VITALS: PULSE 94; RESP 18; O2SAT 94
--- NOTE | 2017-01-11 21:12 | EKG ---
Date Performed: 01/11/2017 Time Performed: 06:18:28 PTAGE: 81 years EKG: Sinus rhythm NORMAL ECG Compared to prior tracing no significant change DOCTOR: Cheryl Fitzpatrick Interpretating Date/Time 01/11/2017 21:10:57
== END | disposition home or self-care (01) ==
LOC: HSDC 05:27
PROVIDERS: ATTEND Orthopaedic Surgery Orthopaedic Trauma
DX: S52.501D Unspecified fracture of the lower end of right radius, subsequent encounter for closed fracture with routine healing (principal); E78.5 Hyperlipidemia, unspecified; J44.9 Chronic obstructive pulmonary disease, unspecified; Z01.810 Encounter for preprocedural cardiovascular examination
CPT/HCPCS: 01820; 20694; 87015; 87070; 87102; 87116; 87205; 87206; 93005; J2250; J3010; J3370; J7050; J7120